=== PATIENT | male | born 1960 | race Caucasian/White ===

== ENCOUNTER 2020-05-18 10:46 | Emergency (ER) | payer OTHER, SELFPAY ==
--- NOTE | ~2020-05-18 | XR_ITS ---
EXAMINATION: XR lumbar spine 2-3V EXAM DATE: 05/18/2020 12:38 INDICATION: sciatica, low back pain for 2 weeks. No known injury. TECHNIQUE: Lumber spine frontal, lateral, lateral L5-S1 projections for interpretation. Comparison is made to prior examination from 2016. FINDINGS: Mild to moderate diffuse lumbar disc disease and lower lumbar facet arthropathy, mild uppe r lumbar facet arthropathy. Small endplate osteophytes. The vertebral bodies are aligned in the AP di mension. No endplate erosive change. Sacrum, sacroiliac joints, sacral arcuate lines are intact. Para spinal soft tissue is unremarkable. There are no osteoblastic or osteolytic lesions identified. IMPRESSION: Mild to moderate lumbar spondylosis, slight progression compared to 2016 Reviewed, dictated and finalized at location A. P SEWER IMPRESSION: Mild to moderate lumbar spondylosis, slight progression compared t o 2016
[2020-05-18 10:48] VITALS: BP 191/99; PULSE 80; RESP 14; TEMP 35.8; O2SAT 99
--- NOTE | 2020-05-18 11:18 | PC.NURSE ---
patient brought back to ED room 19 with lower back pain. see triage notes. no change in condition since triage completed. patient with difficulty walking. wants to sit on stretcher due to pain. assessments documented. call light in reach. no previous hx of HTN or meds at home.
[2020-05-18 11:32] VITALS: BP 215/101
[2020-05-18 12:02] VITALS: BP 197/102
--- NOTE | 2020-05-18 12:32 | ED.BACK ---
HPI - Back Pain/Injury General Chief Complaint: Back Pain/Injury Stated Complaint: lower back pain Time Seen by Provider: 05/18/20 12:05 History of Present Illness HPI Narrative: Patient is a 59-year-old male who presents ER with low back pain. Ongoing for 2 weeks. Began in his right low back but is now more specifically located in the left low back near L5 region. No trauma or injury with heavy lifting or moving. Woke up 1 day and his back was hurting. Reports it harder to stand upright. He will occasionally have shooting pains down behind both knees. No numbness or tingling in the private parts. No functional weakness but the pain will grab him where he reports his leg will give out. Denies fevers or chills or sweats. Has had some back pain in the past similar to this. Reports he went to a chiropractor couple days ago without any relief of his discomfort. Reports he has tried heat and ice as well as some [id number] anti-inflammatories. Related Data Allergies Allergy/AdvReac Type Severity Reaction Status Date / Time No Known Allergies Allergy Unknown Verified 07/18/15 14:49 Review of Systems Review of Systems: All systems reviewed & are unremarkable except as noted in HPI and below Constitutional: Constitutional: Denies chills, Denies fever(s) and Denies weakness Cardiovascular: Cardiovascular: Denies chest pain and Denies radiating jaw, neck or arm pain Respiratory: Respiratory: Denies dyspnea Musculoskeletal: Musculoskeletal: Reports back pain, Denies arthralgias, Denies joint swelling and Reports muscle cramps Neurologic: Denies focal weakness and Denies numbness PMFSH Past Medical History Medical History (Updated 05/18/20 @ 14:02 by Eugenio Winston MD) Healthy adult male Surgical History Surgical History (Updated 05/18/20 @ 12:34 by Eugenio Winston MD) No history of previous surgery Social History Social History (Updated 05/18/20 @ 12:34 by Eugenio Winston MD) Smoking status: Former smoker Smoking end date: 02/26/20 Alcohol intake: current Exam Narrative: Exam Narrative: GENERAL: Well-appearing, well-nourished, and in no acute distress. HEAD: Normocephalic, atraumatic. CHEST: Clear to auscultation. No respiratory distress. HEART: Regular rate and rhythm. Normal peripheral pulses. EXTREMITIES: Normal range of motion. No edema. Back: No midline tenderness of thoracic or lumbar spine. No reproducible paraspinal muscular tenderness but patient reports pain on the left side near L5 when going from sitting to standing and when trying to ambulate. SKIN: Warm, dry, no rash. NEURO: Alert and oriented x3. Course Course Emergency Course: Modest improvement of pain with Toradol. Discussed patient's elevated blood pressures and recommend that he see his primary care doctor for further treatment evaluation of this. I do not want to prescribe steroid pain medication due to the fact that he has elevated blood pressure. She will be started on scheduled naproxen as well as muscle relaxers. Will give him Adel for breakthrough pain. Patient requires a work note for tomorrow. Discussed that if his symptoms are worsening he may require MRI which his primary care doctor could arrange. Vital Signs Vital signs: Vital Signs Temperature 96.5 F L 05/18/20 10:48 Pulse Rate 80 05/18/20 10:48 Respiratory Rate 14 05/18/20 10:48 Blood Pressure 191/99 H 05/18/20 10:48 Pulse Oximetry 99 05/18/20 10:48 Temperature 96.5 F L 05/18/20 10:48 Pulse Rate 80 05/18/20 10:48 Respiratory Rate 14 05/18/20 10:48 Blood Pressure 197/102 H 05/18/20 12:02 Pulse Oximetry 99 05/18/20 10:48 MDM - Back Pain/Injury Imaging Data Radiologist's impression: ITS Impressions Lumbar Spine X-Ray 05/18/20 12:40 IMPRESSION: Mild to moderate lumbar spondylosis, slight progression compared to 2016 Discharge Plan Discharge Clinical Impression: Sciatica Pat
--- NOTE | 2020-05-18 13:00 | PC.NURSE ---
patient back from xray. pain med given as ordered. sitting on stretcher. call light in reach. denies needs.
[2020-05-18] MEDS: KETOROLAC (*BKC) 60 MG/2 ML VIAL IM (13:02)
--- NOTE | 2020-05-18 13:29 | PC.NURSE ---
sitting on stretcher. feels better and more ROM after toradol. BP still elevated. will monitor. waiting for further orders from provider vs disposition.
[2020-05-18 14:27] VITALS: BP 197/106; PULSE 78; O2SAT 100
== END 2020-05-18 14:15 | disposition home or self-care (01) ==
PROVIDERS: Emergency Provider Emergency Medicine
DX: M54.42 Lumbago with sciatica, left side (principal); M47.816 Spondylosis without myelopathy or radiculopathy, lumbar region; Z87.891 Personal history of nicotine dependence
CPT/HCPCS: 72100; 96372; 99283; J1885

== ENCOUNTER 2024-04-05 16:20 | Observation (INO) | payer OTHER, SELFPAY ==
[2024-04-05] VITALS (21 sets, daily range): BP systolic 95–124; BP diastolic 63–91; PULSE 66–94; RESP 12–23; TEMP 36.6; O2SAT 95–100
--- NOTE | ~2024-04-05 | XR_ITS ---
CHEST RADIOGRAPH, PA AND LATERAL CLINICAL HISTORY: Elevated WBC . COMPARISON: None available TECHNIQUE: PA and lateral views of the chest. FINDINGS The cardiomediastinal silhouette is unremarkable. Diffuse bilateral centrilobular groundglass opacities in both poorly defined and well defined for whi ch the differential diagnosis is broad. Cross-sectional imaging (noncontrast enhanced CT examination of the chest) is recommended for further characterization. No pleural effusions. Visualized osseous structures and soft tissues are unremarkable. IMPRESSION: Diffuse bilateral centrilobular alveolar opacities, as detailed above for which the differential diag nosis is broad (idiopathic pulmonary hemosiderosis, any of the pneumoconiosis, diffuse metastatic dis ease, as well as any of the lymphoproliferative disorders). Cross-sectional imaging (noncontrast enhanced CT examination of the chest) would better characterize this diffuse abnormality. Reviewed, dictated and finalized at location A. IMPRESSION: Diffuse bilateral centrilobular alveolar opacities, as detailed above for which the differential diagnosis is broad (idiopathic pulmonary hemosiderosis, any o f the pneumoconiosis, diffuse metastatic disease, as well as any of the lymphop roliferative disorders). Cross-sectional imaging (noncontrast enhanced CT examination of the chest) woul d better characterize this diffuse abnormality.
--- NOTE | ~2024-04-05 | US_ITS ---
EXAM: RENAL ULTRASOUND HISTORY: THEODORA COMPARISON: None FINDINGS: RIGHT KIDNEY: 11.6 x 5.8 x 4.7 cm. The parenchyma of the right kidney is increased in echogenicity. No hydronephrosis or bulky renal calculi. LEFT KIDNEY: 12.2 x 6.1 x 4.9 cm No hydronephrosis or renal calculi. The parenchyma of the left kidney is increased in echogenicity. BLADDER: Decompressed, limiting its evaluation. IMPRESSION: No hydronephrosis or renal calculi. Findings suggesting medical renal disease. Reviewed, dictated and finalized at location A.
--- NOTE | 2024-04-05 16:43 | ECG_ITS ---
Test Date: 2024-04-05 16:42:26 Measurements Intervals [place] Rate: 80 P: 47 WV: 158 QRS: 37 QRSD: 100 T: 35 QT: 356 QTc: 412 Interpretive Statements SINUS RHYTHM NORMAL ELECTROCARDIOGRAM No previous ECG available for comparison Electronically Signed On 04-06-2024 12:26:28 CDT by Jared Parada M.D.
[2024-04-05] MEDS: SODIUM CHLORIDE 0.9% IV 2,000 ML 999 ML IV CONT (17:01)
[2024-04-05 17:15] LABS: Basophils Absolute Auto 0.1 K/mm3 (0.0-0.1); Basophils Percent Auto 0.9 % (0.2-1.2); Eosinophils Absolute Auto 0.2 K/mm3 (0-0.3); Hematocrit 37.7 % (42.0-52.0); Hemoglobin 12.4 g/dL (14.0-18.0); Immature Granulocyte Absolute 0.18 K/mm3 (0.00-0.031); Immature Granulocyte Percent A 1.2 % (0-0.5); Lymphocytes Absolute Auto 0.99 K/mm3 (0.9-3.2); Lymphocytes Percent Auto 6.4 % (18.3-44.2); Mean Corpuscular HGB Conc 32.9 g/dl (32-36); Mean Corpuscular Volume 94.3 fl (80-100); Mean Platelet Volume 10.3 fl (7.4-10.4); Monocytes Absolute Auto 1.6 K/mm3 (0.1-0.6); Monocytes Percent Auto 10.6 % (2.6-8.5); Neutrophils Absolute Auto 12.4 K/mm3 (1.3-6.7); Neutrophils Percent Auto 79.9 % (45.5-73.1); Platelet Count Result 578 k/mm3 (150-375); Red Cell Distribution Width 13.7 % (11.5-14.5); White Blood Count 15.5 K/mm3 (4.5-10.0)
[2024-04-05 17:28] LABS: Alanine Aminotransferase 105 U/L (6-50); Albumin Level 3.9 g/dL (3.5-5.1); Alkaline Phosphatase 747 U/L (38-126); Anion Gap 11 mmol/L (4-12); Aspartate Amino Transferase 128 U/L (17-59); Bilirubin,Total 1.3 mg/dL (0.2-1.3); Blood Urea Nitrogen 53 mg/dL (9-20); Calcium 10.7 mg/dL (8.4-10.2); Carbon Dioxide 24 mmol/L (22-30); Chloride 97 mmol/L (98-107); Estimated CRCL calculation 27 ml/min; Estimated Glomerular Filt Rate 23; Glucose 154 mg/dL (65-110); Magnesium 2.1 mg/dL (1.6-2.3); Potassium 5.5 mmol/L (3.4-5.0); Sodium 132 mmol/L (137-145)
--- NOTE | 2024-04-05 18:08 | ED.RECABL ---
HPI - Recheck/Abnormal Lab/Rx General Chief Complaint: Recheck/Abnormal Lab/Rx Stated Complaint: abnormal labs Time Seen by Provider: 04/05/24 16:37 Source: patient Mode of arrival: ambulatory Limitations: no limitations History of Present Illness HPI narrative: This is a 63-year-old male, with reported history of stage IV metastatic pancreatic cancer, including metastasis to the brain, who presents emergency department at recommendation of his oncologist for abnormal kidney function tests and elevated potassium. The patient is not sure of the numbers. He states in his conversation with the oncologist today, his cancer is not treatable aside from palliative chemotherapy. He states he was given a 90 day prognosis. He complains of fatigue, though denies chest pain, shortness of breath, lower extremity swelling, change in urination, or cough. He has no other complaints at this time. Related Data Allergies Allergy/AdvReac Type Severity Reaction Status Date / Time No Known Allergies Allergy Unknown Verified 04/05/24 16:25 Review of Systems Review of Systems: All systems reviewed & are unremarkable except as noted in HPI and below PMFSH Past Medical History Medical History Pancreatic malignant neoplasm Surgical History Surgical History No history of previous surgery Social History Social History Smoking status: Former smoker Smoking end date: 02/26/20 Alcohol intake: current Exam Narrative: GENERAL: Well-developed, well-nourished, and in no acute distress. appears pale HEAD: Normocephalic, atraumatic. EYES: PERRLA and EOMI. CHEST: Clear to auscultation. No respiratory distress. No wheezes rales or rhonchi HEART: Regular rate and rhythm. No murmur heard. Normal peripheral pulses. ABDOMEN: Soft, nontender, nondistended, normal active bowel sounds. EXTREMITIES: Normal range of motion. No edema. SKIN: Warm, dry, no rash. NEURO: Alert and oriented x3. No focal deficit. Moving all 4 limbs spontaneously PSYCH: Normal mood and affect. Course Course Emergency Course: 16:50 - The patient has not yet had a goals of care conversation with a provider. We discussed his preferences. He wishes to avoid intubation if needed but does not want to be DNR. He has not yet discussed his goals of care with his family, though has begun speaking with his twister operator. We discussed treatment options pending his lab results. He prefers to be discharged today. 20:11 - White blood cell count elevated at 15.5. Hemoglobin 12.4. Platelets 578. In the absence of other infectious symptoms, I suspect these abnormalities are related to his metastatic pancreatic cancer. Initial potassium elevated at 5.5 with creatinine of 2.8. EKG not concerning for peaked t-waves or arrhythmia. Repeat potassium increased to 5.8 and creatinine decreased to 2.5 despite 2 L IV fluids. AST/ALT 128/105 respectively. BUN BUN elevated at 51 with a normal anion gap of 7. UA demonstrates 35 RBCs, trace ketones and bilirubin with no other changes concerning for urinary tract infection. I discussed these findings with the patient who agrees to IV glucose and insulin, though does not want to be admitted. He understands the possibility that his potassium will continue to rise and could become deadly. Will recheck potassium after medications. 20:13 - Nursing staff talked with the patient further, the patient changed his mind and agrees with admission. 20:31 - I discussed the patient with hospitalist, Dr. Good who accepts admission. Vital Signs Vital signs: Vital Signs Temperature 97.8 F 04/05/24 16:22 Pulse Rate 94 04/05/24 16:22 Respiratory Rate 16 04/05/24 16:22 Blood Pressure 95/63 L 04/05/24 16:22 Pulse Oximetry 100 04/05/24 16:22 Temperature 97.8 F 04/05/24 16:22 Pulse Rate 85
[2024-04-05 19:04] LABS: Add Urine Microscopic? YES; Appearance Urine Cloudy (Clear); Bacteria Urine None Seen /hpf; Bilirubin Urine 1+ (Negative); Blood Urine Negative (Negative); Color Urine Dark Yellow (Yellow); Glucose Urine UA Negative (Negative); Ketones Urine Trace mg/dL (Negative); Leukocyte Esterase Ur Negative LEU/UL (Negative); Nitrate Urine Negative (Negative); Non Pathogenic Casts >20; Protein Urine 1+ mg/dL (Negative); Specific Grav Ur 1.017 (1.001-1.035); Squamous Epithelial Cell Urine None Seen /hpf (Few); WBC Urine 0-5 /hpf (0-3); pH Urine 5.5 (5.0-9.0)
[2024-04-05 19:09] LABS: Granular Casts Urine Present /lpf; Hyaline Casts Urine Present /lpf; Need Manual Microscopic Reviewed
[2024-04-05 19:44] LABS: Anion Gap 7 mmol/L (4-12); Blood Urea Nitrogen 51 mg/dL (9-20); Calcium 9.9 mg/dL (8.4-10.2); Carbon Dioxide 23 mmol/L (22-30); Chloride 103 mmol/L (98-107); Estimated CRCL calculation 30 ml/min; Estimated Glomerular Filt Rate 26; Glucose 151 mg/dL (65-110); Potassium 5.8 mmol/L (3.4-5.0); Sodium 133 mmol/L (137-145)
[2024-04-05] MEDS: INSULIN HUMAN REGULAR (*BKC) 100 UNITS/ML 10 UNITS IV PUSH ×2 (20:02→21:35)
[2024-04-05] MEDS: DEXTROSE 50% 25 GM/50 ML SYRINGE IV PUSH ×2 (20:02→21:36)
[2024-04-05 20:14] LABS: Glucose Point of Care 142 mg/dl (65-105)
--- NOTE | 2024-04-05 20:51 | PM.IMHP ---
H&P: HPI History of Present Illness Date/Time: 04/05/24 20:51 Chief Complaint: Abnormal labs Narrative: 63 year old male with stage IV metastatic pancreatic cancer with metastases to brain presents the emergency room with with abnormal normal labs after seeing his oncologist. Over the last 3 months patient had a report a 30 lb weight loss and dizziness, today his eyes oncologist was diagnosed with stage IV pancreatic cancer with metastases to the brain. For today he did not know that he had cancer. Patient was also told that he had abnormal labs was recommended to come to the hospital. Patient leukocytosis of 15.5, sodium of 133, potassium 5.8, creatinine is 2.5, AST of 128, ALT of 105, alkaline phosphatase 746. Long discussion with patient about code status, what CPR means, what intubation means, and different interventions that we can offer. The patient states that he is okay with CPR, and code medications however he does not want to be intubated during the code, and does not want to go to the ICU Review of Systems Constitutional: Constitutional: Reports no additional constitutional complaints Eyes: Eyes: Reports no additional eye complaints ENT: Reports as per HPI Cardiovascular: Cardiovascular: Reports no additional cardiovascular complaints Respiratory: Respiratory: Reports no additional respiratory complaints Gastrointestinal: Gastrointestinal: Reports no additional gastrointestinal complaints Genitourinary: Comments: Dark urine Musculoskeletal: Musculoskeletal: Reports no additional musculoskeletal complaints Integumentary/Breasts: Skin/Breast: Reports as per HPI Neurologic: Reports as per HPI Psychiatric: Psychiatric: Reports no additional psychiatric complaints [facility] Past Medical History Medical History (Updated 04/05/24 @ 23:20 by Rafaela Wang APRN) Pancreatic malignant neoplasm Surgical History Surgical History (Updated 04/05/24 @ 23:18 by Rafaela Wang APRN) H/O Spinal surgery Social History Social History Smoking packs per day: 1 Smoking cigarettes per day: 20.0 Years smoked: 40 Smoking pack-years: 40.00 Smoking status: Former smoker Smoking end date: 02/26/20 Alcohol intake: former Substance use: never Do You Feel Safe in your Home?: Yes Lack of Transportation: No Lack of Food: Never True Current Housing: Decline to Answer Concerned About Future Housing: No Difficulty Paying Gas/Electric Bills: No Difficulty Paying for Meds: No Currently Unemployed: No Education: High School Diploma/GED Difficulty w/ Childcare or Family Care: No Spiritual care concerns: No Meds Home Medications and Allergies Home Medications Medication Instructions Recorded Confirmed Type cyclobenzaprine 10 mg tablet 10 mg PO TID PRN muscle spasm #20 05/18/20 04/05/24 Rx tabs allopurinol 300 mg tablet 300 mg PO DAILY 04/05/24 04/05/24 History amlodipine 10 mg tablet 10 mg PO DAILY 04/05/24 04/05/24 History atorvastatin 40 mg tablet 40 mg PO DAILY 04/05/24 04/05/24 History celecoxib 100 mg capsule 100 mg PO Q12H PRN Pain 04/05/24 04/05/24 History dexamethasone 2 mg tablet 2 mg PO DAILY 04/05/24 04/05/24 History hydrocodone 10 mg-acetaminophen 1 tablet PO Q6H PRN Pain (Scale 04/05/24 04/05/24 History 325 mg tablet Score 4-6) lisinopril 40 mg tablet 40 mg PO DAILY 04/05/24 04/05/24 History trazodone 50 mg tablet 50 mg PO HS PRN Insomnia 04/05/24 04/05/24 History Allergies Allergy/AdvReac Type Severity Reaction Status Date / Time No Known Allergies Allergy Unknown Verified 04/05/24 16:25 Vital Signs Vital Signs - 24 hr 04/05/24 16:22 04/05/24 17:47 04/05/24 18:00 Temperature 97.8 F Pulse Rate 94 70 67 Respiratory Rate 16 18 13 Blood Pressure 95/63 L 107/75 Pulse Oximetry 100 98 99 04/05/24 18:02 04/05/24 18:15 04/05/24 18:17 Temperature Pulse Rate 66 67 68 Resp
[2024-04-05] MEDS: SODIUM ZIRCONIUM CYCLOSILICATE 10 GM POWD.PACK PO (20:56)
[2024-04-05 21:06] LABS: Glucose Point of Care 192 mg/dl (65-105)
[2024-04-05 21:17] LABS: Potassium 5.7 mmol/L (3.4-5.0)
[2024-04-05] MEDS: HYDROcodone/acetaminophen (*CRX) 5-325 MG TABLET 1 TAB PO (22:37)
[2024-04-05] MEDS: SODIUM CHLORIDE 0.9% IV 1,000 ML 100 ML IV CONT (22:40)
[2024-04-05] MEDS: CALCIUM GLUC 1,000 MG/NS 50 ML 1,000 MG/50 ML BAG 100 MG IVPB (22:47)
[2024-04-06] VITALS (11 sets, daily range): BP systolic 91–113; BP diastolic 57–69; PULSE 66–88; RESP 15–20; TEMP 36.5–36.9; O2SAT 93–96; BMI 24.7
[2024-04-06 00:24] LABS: Potassium 5.1 mmol/L (3.4-5.0)
[2024-04-06 05:19] LABS: Basophils Absolute Auto 0.1 K/mm3 (0.0-0.1); Basophils Percent Auto 0.5 % (0.2-1.2); Eosinophils Percent Auto 0.1 % (0-4.4); Hematocrit 35.6 % (42.0-52.0); Hemoglobin 11.3 g/dL (14.0-18.0); Immature Granulocyte Absolute 0.13 K/mm3 (0.00-0.031); Immature Granulocyte Percent A 0.8 % (0-0.5); Lymphocytes Percent Auto 5.8 % (18.3-44.2); Mean Corpuscular HGB Conc 31.7 g/dl (32-36); Mean Corpuscular Hemoglobin 30.1 pg (26-34); Mean Corpuscular Volume 94.9 fl (80-100); Mean Platelet Volume 10.1 fl (7.4-10.4); Monocytes Absolute Auto 1.5 K/mm3 (0.1-0.6); Monocytes Percent Auto 9.7 % (2.6-8.5); Neutrophils Absolute Auto 12.9 K/mm3 (1.3-6.7); Neutrophils Percent Auto 83.1 % (45.5-73.1); Platelet Count Result 500 k/mm3 (150-375); Red Blood Count 3.75 M/mm3 (4.6-6.20); Red Cell Distribution Width 13.6 % (11.5-14.5); White Blood Count 15.5 K/mm3 (4.5-10.0)
[2024-04-06 05:33] LABS: Magnesium 1.8 mg/dL (1.6-2.3); Phosphorus 4.1 mg/dL (2.5-4.5)
[2024-04-06 05:37] LABS: Anion Gap 8 mmol/L (4-12); Blood Urea Nitrogen 43 mg/dL (9-20); Calcium 9.9 mg/dL (8.4-10.2); Carbon Dioxide 22 mmol/L (22-30); Chloride 105 mmol/L (98-107); Estimated CRCL calculation 40 ml/min; Estimated Glomerular Filt Rate 36; Glucose 126 mg/dL (65-110); Potassium 5.3 mmol/L (3.4-5.0); Sodium 135 mmol/L (137-145)
[2024-04-06] MEDS: ATORVASTATIN 40 MG TABLET PO (08:27)
[2024-04-06] MEDS: ENOXAPARIN 40 MG/0.4 ML SYRINGE SUB-Q (08:27)
[2024-04-06] MEDS: HYDROcodone/acetaminophen (*CRX) 10-325 MG TABLET 1 TAB PO ×2 (08:32→15:34)
--- NOTE | 2024-04-06 08:45 | PC.NURSE ---
Lying in bed, alert and oriented at this time. States Do I get to eat anything, I am hungry . Discussed that an order for a low potassium diet has been put in, reviewed the menu and explained how to call for food. Verbalizes understanding at this time. Also discussed plan of care, including current lab results, and medications. Patient verbalizes understanding and states that he is familiar with medications ordered to be given this morning. Denies shortness of breath, complains of generalized pain (has been ongoing), and denies chest pain at this time. Vital signs are stable this morning. No acute distress noted at this time.
--- NOTE | 2024-04-06 17:01 | PM.IMPN ---
Progress Note: A&P Assessment and Plan (1) Metastatic adenocarcinoma to pancreas: Code(s): C78.89 - Secondary malignant neoplasm of other digestive organs Status: Acute Assessment and Plan: Hx from patient and family. Patient was hospitalized about 2-3 weeks ago at [facility] and found to have metastatic pancreatic cancer determined by liver biopsy. He has metastasis to his lung and brain. He is not sure if he has had a PET scan. Patient could not follow up with the oncologist at [facility] because he is [id number] so he made an appointment with Dr Echevarria which was scheduled for today. He has already been told that his life expectancy is about 3 months. He states the Dr Echevarria has all the records so will hold on repeating imaging here until patient is seen by Dr Echevarria and plan can be worked out. key account coordinator spoke with patient about informational meeting with Hospice and patient agreed to that. (2) Acute hyperkalemia: Code(s): E87.5 - Hyperkalemia Status: Acute Assessment and Plan: Patient was sent to the ED due to abnormal labs. Here, he had a potassium of 5.5 with THEODORA. Patient given dextrose, insulin, Lokelma and 2 L bolus an emergency room. Repeat potassium was 5.8 and he had repeat treatment. Started on IV fluids. Repeat potassium today was 5.3. On a low potassium diet. Follow. (3) THEODORA (acute kidney injury): Code(s): N17.9 - Acute kidney failure, unspecified Status: Acute Assessment and Plan: Cr 2.8 on admission. Baseline unknown and patient denies underlying renal dysfunction. Patient given 2 L emergency room and started on IV fluids. Cr trending down. Suspect related to dehydration from poor oral intake, medications (ROLF, NSAIDS) and pancreatic CA Holding allopurinol, celecoxib and lisinopril Check Renal US. Check urine studies. Continue IV fluids for hydration (4) Leukocytosis: Code(s): D72.829 - Elevated white blood cell count, unspecified Status: Acute Assessment and Plan: WBC elevated on admission at 15K. UA not consistent with UTI. CXR showing diffuse bilateral centrilobular alveolar opacities. Differential is broad but suspect this is from diffuse metastatic disease Will hold off on CT chest at this time. See below (5) Hypertension: Code(s): I10 - Essential (primary) hypertension Status: Acute Assessment and Plan: Patient's blood pressure was reviewed on 04/06 Blood pressure soft at times but mostly stable Will continue to monitor. Continue to hold lisinopril (6) Gout: Code(s): M10.9 - Gout, unspecified Status: Acute Assessment and Plan: Monitor for gouty flare. Holding allopurinol Plan DVT prophylaxis - Lovenox Code status - modified. Subjective Date/time seen: 04/06/24 17:01 Interval history: 63yo male with metastatic pancreatic cancer here for abnormal labs. No CP or SOB. Weight loss of 28# past 6 weeks. Slept poorly last night. Lightheadedness better and he is eating better. He was taken off his BP meds recently. Exam Narrative: AF 97.9 91/57 77 16 93% ra Gen - NARD Chest - CTA bilaterally, nml RR CV - RRR S1/S2. Tele showing no significant dysrhythmias Abd - Soft, NT/ND, Positive BS, hepatomegaly Ext - No pedal edema Neuro - Alert and oriented but forgetful at times Psych - Nml mood and affect Skin - Warm and dry Objective Data Vital Signs Vital Signs: Vital Signs - 24 hr 04/05/24 17:47 04/05/24 18:00 04/05/24 18:02 Temperature Pulse Rate 70 67 66 Respiratory Rate 18 13 18 Blood Pressure 107/75 107/76 Pulse Oximetry 98 99 100 Oxygen Delivery 04/05/24 18:15 04/05/24 18:17 04/05/24 18:30 Temperature Pulse Rate 67 68 78 Respiratory Rate 16 23 H 18 Blood Pressure 112/73 Pulse Oximetry 100 100 Oxygen Delivery 04/05/24 18:45 04/05/24 19:00 04/05/24 19:13 Temperature Pulse Rate 76 83 80 Respirat
[2024-04-06 18:19] LABS: Anion Gap 10 mmol/L (4-12); Blood Urea Nitrogen 37 mg/dL (9-20); Calcium 10.1 mg/dL (8.4-10.2); Carbon Dioxide 18 mmol/L (22-30); Chloride 106 mmol/L (98-107); Estimated CRCL calculation 47 ml/min; Estimated Glomerular Filt Rate 44; Glucose 134 mg/dL (65-110); Potassium 4.6 mmol/L (3.4-5.0); Sodium 134 mmol/L (137-145)
[2024-04-06] MEDS: SODIUM CHLORIDE 0.9% IV 1,000 ML 100 ML IV CONT (21:04)
[2024-04-06] MEDS: traZODone HCL 50 MG TABLET PO (21:10)
[2024-04-06 23:14] LABS: Creatinine Urine 129.8 mg/dL
[2024-04-06 23:16] LABS: Sodium Urine Random 83 meq/L
[2024-04-06 23:20] LABS: Eosinophil Urine None Seen % (None Seen); Urine Eos QC 2nd Tech Confirmed
[2024-04-07] VITALS (9 sets, daily range): BP systolic 113–123; BP diastolic 59–66; PULSE 76–99; RESP 16–20; TEMP 36.8–37.7; O2SAT 91–94
[2024-04-07 05:06] LABS: Albumin Level 3.1 g/dL (3.5-5.1); Anion Gap 7 mmol/L (4-12); Blood Urea Nitrogen 33 mg/dL (9-20); Calcium 9.5 mg/dL (8.4-10.2); Carbon Dioxide 22 mmol/L (22-30); Chloride 105 mmol/L (98-107); Creatine Kinase 32 U/L (55-170); Estimated CRCL calculation 53 ml/min; Estimated Glomerular Filt Rate 51; Glucose 87 mg/dL (65-110); Phosphorus 2.9 mg/dL (2.5-4.5); Potassium 4.8 mmol/L (3.4-5.0); Sodium 134 mmol/L (137-145)
[2024-04-07] MEDS: SODIUM CHLORIDE 0.9% IV 1,000 ML 100 ML IV CONT (06:34)
[2024-04-07] MEDS: HYDROcodone/acetaminophen (*CRX) 10-325 MG TABLET 1 TAB PO (08:44)
[2024-04-07] MEDS: ENOXAPARIN 40 MG/0.4 ML SYRINGE SUB-Q (08:44)
[2024-04-07] MEDS: CYCLOBENZAPRINE HCL 10 MG TABLET PO (09:37)
--- NOTE | 2024-04-07 13:24 | PM.DS ---
DS: Admitting Diagnosis Discharge Date 04/07/24 Admitting Diagnosis Abnormal lab DS: Discharge Diagnosis Discharge Diagnosis (1) Acute hyperkalemia: Code(s): E87.5 - Hyperkalemia Status: Acute (2) THEODORA (acute kidney injury): Code(s): N17.9 - Acute kidney failure, unspecified Status: Acute (3) Leukocytosis: Code(s): D72.829 - Elevated white blood cell count, unspecified Status: Acute (4) Hypertension: Code(s): I10 - Essential (primary) hypertension Status: Acute DS: Summary Hospital Course Hospital Course: 63 year old male with stage IV metastatic pancreatic cancer with metastases to brain presents the emergency room with with abnormal normal labs after seeing his oncologist. Over the last 3 months patient had a report a 30 lb weight loss and dizziness, today his eyes oncologist was diagnosed with stage IV pancreatic cancer with metastases to the brain. For today he did not know that he had cancer. Patient was also told that he had abnormal labs was recommended to come to the hospital. patient is clinically stable, his pain has improved and hyperkalemia has resolved, patient stats he feels fine and watch his diet, patient stats he will follow up his oncologist as outpatient. will discharge patient today. Time Spent with Patient Time attestation: Total time spent providing and/or coordinating discharge services: Exam Narrative: Patient is comfortable, NAD HEENT: eyes are clear and none icteric LUNGS:CTA HEART: RR S1S2 ABD: BS+, Soft and nontender Lower extremities: no edema SKIN: nonjaundiced Neuro: grossly intact. DS: Data Data Completed and Pending Labs on day of discharge: Labs from last 24 hours 04/07/24 04/06/24 04/06/24 04:35 22:29 17:55 Sodium 134 L 134 L Potassium 4.8 4.6 Chloride 105 106 Carbon Dioxide 22 18 L Anion Gap 7 10 BUN 33 H 37 H Creatinine 1.40 H 1.60 H Estim Creat Clear Calc 53 47 Estimated GFR 51 L 44 L Glucose 87 134 H Calcium 9.5 10.1 Phosphorus 2.9 Total Creatine Kinase 32 L Albumin 3.1 L Urine Eosinophils None seen Ur Random Sodium 83 Urine Creatinine 129.8 Discharge Plan Discharge Attending physician on discharge: Linette Hartman Consulting providers: Azar Echevarria Discharging Clinician: Gloria Fernández Patient Disposition: Home, Self-Care Activity: as tolerated Diet: as tolerated and low fat Discharge Instructions: Patient is instructed to eat low fat and low potassium diet, patient to follow up with Dr. Echevarria oncologist as soon as possible, patient to follow up with his primary care provider as soon as possible, patient is instructed if any symptoms worsen to go to nearest ER. Patient Instructions: Antibiotic Form, Low Fat Diet (DC), Potassium Content of Foods List (DC), Hyperkalemia (DC) Stand Alone Forms: General Discharge Information Follow-up/Referrals: Azar Echevarria MD [Physician] - UNKNOWN,DOCTOR [Primary Care Provider] - Discharge Medications: Continued cyclobenzaprine 10 mg tablet 10 mg PO TID PRN (Reason: muscle spasm) Qty: 20 0RF trazodone 50 mg tablet 50 mg PO HS PRN (Reason: Insomnia) hydrocodone-acetaminophen 10-325 mg tablet 1 tablet PO Q6H PRN (Reason: Pain (Scale Score 4-6)) amlodipine 10 mg tablet 10 mg PO DAILY dexamethasone 2 mg tablet 2 mg PO DAILY allopurinol 300 mg tablet 300 mg PO DAILY lisinopril 40 mg tablet 40 mg PO DAILY Held atorvastatin 40 mg tablet 40 mg PO DAILY Hold Instructions: until seen by his priamry care provider celecoxib 100 mg capsule 100 mg PO Q12H PRN (Reason: Pain) Hold Instructions: until seen by his priamry care provider Date of admission: 04/05/24 20:33 Primary Care Provider: UNKNOWN,DOCTOR Admitting Provider: So Good Attending physician on admission: So Good
== END 2024-04-07 15:54 | disposition home or self-care (01) ==
LOC: ANHED 20:42 → ANHIMU 04-06 10:33
PROVIDERS: Internal Medicine; Nurse Practitioner Gerontology; Admitting Provider General Practice; Emergency Provider Preventive Medicine Aerospace Medicine; Visit Provider Family Medicine
DX: E87.5 Hyperkalemia (principal); N17.9 Acute kidney failure, unspecified; D72.829 Elevated white blood cell count, unspecified; C25.9 Malignant neoplasm of pancreas, unspecified; C78.7 Secondary malignant neoplasm of liver and intrahepatic bile duct; C78.00 Secondary malignant neoplasm of unspecified lung; C79.31 Secondary malignant neoplasm of brain; M10.9 Gout, unspecified; I10 Essential (primary) hypertension; Z79.899 Other long term (current) drug therapy; Z87.891 Personal history of nicotine dependence
CPT/HCPCS: 36415; 71046; 76775; 80048; 80053; 80069; 81001; 82550; 82570; 82948; 83735; 84100; 84132; 84300; 85025; 85999; 93005; 96360; 96361; 96372; 96374; 96375; 96376; 99285; A9270; G0378; J0612; J1650; J1815; J7030

== ENCOUNTER 2024-04-12 14:42 | Observation (INO) | payer OTHER, SELFPAY ==
[2024-04-12] VITALS (18 sets, daily range): BP systolic 103–138; BP diastolic 63–126; PULSE 61–100; RESP 11–97; TEMP 36.4–36.6; O2SAT 92–100; BMI 23.6
--- NOTE | ~2024-04-12 | US_ITS ---
EXAMINATION: US venous doppler [facility] DATE: 04/13/2024 13:26 INDICATION: Shortness of breath with pulmonary emboli. TECHNIQUE: Grayscale ultrasound images without and with compression and Doppler ultrasound images of the bilateral lower extremity veins were obtained. COMPARISON: None. FINDINGS: Noncompressible deep venous thrombosis in right posterior tibial vein. The visualized portions of rig ht common femoral vein, profunda (deep) femoral vein, femoral vein, popliteal vein, peroneal veins, g astrocnemius vein and greater saphenous vein outflow are patent. The visualized portions of left common femoral vein, profunda femoral vein, femoral vein, popliteal v ein, posterior tibial veins, peroneal veins, gastrocnemius vein and greater saphenous vein outflow ar e patent. IMPRESSION: 1. [id number] deep venous thrombosis in the left posterior tibial vein. 2. No deep venous anastomosis in the right lower limb. Reviewed, dictated and finalized at location A. IMPRESSION: 1. [id number] deep venous thrombosis in the left posterior tibial vein. 2. No deep venous anastomosis in the right lower limb.
--- NOTE | ~2024-04-12 | CT_ITS ---
EXAMINATION: CTA chest PE abdomen pel DATE: 04/12/2024 18:09 INDICATION: Shortness of breath. Abdominal pain. TECHNIQUE: Computed tomography angiography (CTA) of the chest was performed with 100 mL Omnipaque-350 intravenous contrast timed to evaluate the pulmonary arteries. Coronal maximum intensity projection 3D-reconstructions were created by the technologist. Computed tomography (CT) of the abdomen and pelv is was performed with intravenous contrast. Automated exposure control and iterative reconstruction t echnique were employed. The dose-length product was 953.43 mGy-cm. COMPARISON: Chest 2 views 04/05/2024 FINDINGS: CTA chest: There are greater than 100 nodules in the lungs measuring up to approximately 11 mm. There is mild atelectasis bilaterally. The heart size is normal. There are coronary artery calcifications. No pericardial effusion. There are acute pulmonary emboli in the lower lobes and right middle lobe. There is mild thoracic spondylosis. CT abdomen and pelvis: There are greater than 20 masses in the liver measuring up to 6.3 cm. The gall bladder is normal. There is a 7.6 x 7.1 cm mass involving the tail of pancreas with involvement of th e left adrenal gland, left kidney, and splenic flexure of the colon. There is total occlusion of sple bryon artery and vein. There is low-attenuation infarct in the spleen. Right adrenal gland is normal. T here are cysts in the kidneys measuring up to 12 mm on the right. The pancreas is mildly enlarged. Th ere are bilateral inguinal hernias containing fat. The proximal colon is mildly dilated. There is gas tric chronic, periportal, peripancreatic, and left perinephric lymphadenopathy. There are multiple ma sses in the peritoneum measuring up to 1.5 x 1.2 cm. There is no ascites. There is severe lumbar spon dylosis. IMPRESSION: 1. Acute pulmonary emboli in the lower lobes and right middle lobe. I called this result to Dr. Kira gilbert. 2. Pancreatic mass, consistent with primary malignancy, with invasion of the left adrenal gland, left kidney, and splenic flexure of the colon with partial colonic obstruction. 3. Pulmonary nodules, liver masses, abdominal lymphadenopathy, and peritoneal masses, consistent with metastatic disease. 4. Splenic infarct. Reviewed, dictated and finalized at location A. IMPRESSION: 1. Acute pulmonary emboli in the lower lobes and right middle lobe. I called th is result to Dr. Kevin. 2. Pancreatic mass, consistent with primary malignancy, with invasion of the le ft adrenal gland, left kidney, and splenic flexure of the colon with partial co lonic obstruction. 3. Pulmonary nodules, liver masses, abdominal lymphadenopathy, and peritoneal m asses, consistent with metastatic disease. 4. Splenic infarct.
--- NOTE | 2024-04-12 15:38 | PC.NURSE ---
Patient is in pain and getting onto the ground and in and out of bed. explained to the patient that he needs to stay in the bed, and keep the side rails up and stay in the bed so that he doesn't get tangled up in the cords for the monitor, or fall and get injured. patient isn't staying in the bed with the side rails up and keeps kneeling on the floor next to the bed.
--- NOTE | 2024-04-12 17:00 | ECG_ITS ---
Test Date: 2024-04-12 17:40:49 Measurements Intervals [place] Rate: 57 P: 22 FL: 152 QRS: 38 QRSD: 114 T: 23 QT: 421 QTc: 413 Interpretive Statements SINUS BRADYCARDIA Compared to ECG 04/05/2024 16:42:26 NO SIGNIFICANT CHANGES Electronically Signed On 04-13-2024 13:33:50 CDT by Tee Armas M.D.
[2024-04-12] MEDS: HYDROmorphone HCL INJ (*CRX) 1 MG/ML SYR IV PUSH ×2 (17:19→21:26)
[2024-04-12] MEDS: ONDANSETRON INJ 4 MG/2 ML VIAL IV PUSH (17:19)
[2024-04-12] MEDS: SODIUM CHLORIDE 0.9% IV 1,000 ML 999 ML IV CONT ×2 (17:20→21:26)
[2024-04-12 17:38] LABS: Basophils Percent Auto 0.1 % (0.2-1.2); Hematocrit 38.3 % (42.0-52.0); Hemoglobin 12.7 g/dL (14.0-18.0); Immature Granulocyte Absolute 0.25 K/mm3 (0.00-0.031); Immature Granulocyte Percent A 1.1 % (0-0.5); Lymphocytes Absolute Auto 1.07 K/mm3 (0.9-3.2); Lymphocytes Percent Auto 4.6 % (18.3-44.2); Mean Corpuscular HGB Conc 33.2 g/dl (32-36); Mean Corpuscular Hemoglobin 30.5 pg (26-34); Mean Corpuscular Volume 92.1 fl (80-100); Mean Platelet Volume 10.7 fl (7.4-10.4); Monocytes Absolute Auto 2.9 K/mm3 (0.1-0.6); Monocytes Percent Auto 12.6 % (2.6-8.5); Neutrophils Percent Auto 81.6 % (45.5-73.1); Platelet Count Result 337 k/mm3 (150-375); Red Blood Count 4.16 M/mm3 (4.6-6.20); Red Cell Distribution Width 13.8 % (11.5-14.5); White Blood Count 23.2 K/mm3 (4.5-10.0)
[2024-04-12 17:47] LABS: Lactic Acid Reflex 2.8 mmol/L (0.7-2.0)
[2024-04-12 17:48] LABS: Alanine Aminotransferase 162 U/L (6-50); Albumin Level 3.7 g/dL (3.5-5.1); Alkaline Phosphatase 1002 U/L (38-126); Anion Gap 14 mmol/L (4-12); Aspartate Amino Transferase 122 U/L (17-59); Bilirubin,Total 1.1 mg/dL (0.2-1.3); Blood Urea Nitrogen 51 mg/dL (9-20); Calcium 9.9 mg/dL (8.4-10.2); Carbon Dioxide 17 mmol/L (22-30); Chloride 102 mmol/L (98-107); Estimated Glomerular Filt Rate > 60; Glucose 186 mg/dL (65-110); Lipase 157 U/L (23-300); Potassium 4.7 mmol/L (3.4-5.0); Sodium 133 mmol/L (137-145)
[2024-04-12 17:50] LABS: INR 1.2; Partial Thromboplastin Time 24.7 Seconds (22.3-36.8)
[2024-04-12 18:09] LABS: Troponin I < 0.012 ng/mL (0.000-0.034)
--- NOTE | 2024-04-12 18:54 | ED.GENADULT ---
HPI - General Adult General Chief complaint: Unspecified Stated complaint: all over pain Time Seen by Provider: 04/12/24 16:44 History of Present Illness HPI narrative: 63-year-old male with a history of pancreatic adenocarcinoma presenting with abdominal pain. States that he has been very constipated due to his narcotic pain medications. He took some laxatives and he then developed severe diffuse abdominal cramping. He was able to have a bowel movement which seemed to help. States that this pain is different from his prior pain related to his pancreatic cancer. Also complains of an episode of severe shortness of breath several days ago. No chest pain. No further complaints currently. Related Data Home Medications Medication Instructions Recorded Confirmed allopurinol 300 mg tablet 300 mg PO DAILY 04/05/24 04/12/24 atorvastatin 40 mg tablet 40 mg PO DAILY 04/05/24 04/12/24 dexamethasone 2 mg tablet 2 mg PO DAILY 04/05/24 04/12/24 hydrocodone 10 mg-acetaminophen 1 tablet PO Q6H PRN Pain (Scale 04/05/24 04/12/24 325 mg tablet Score 4-6) trazodone 50 mg tablet 50 mg PO HS PRN Insomnia 04/05/24 04/12/24 Allergies Allergy/AdvReac Type Severity Reaction Status Date / Time No Known Allergies Allergy Unknown Verified 04/05/24 16:25 Review of Systems Review of Systems: All systems reviewed & are unremarkable except as noted in HPI and below PMFSH Past Medical History Medical History Pancreatic malignant neoplasm Surgical History Surgical History H/O Spinal surgery Family History Family History Father Cancer Breast cancer Mother Cancer Sibling Cancer Breast cancer Social History Social History Smoking packs per day: 1 Smoking cigarettes per day: 20.0 Years smoked: 20 Smoking pack-years: 20.00 Smoking status: Former smoker Tobacco type: cigarettes Smoking end date: 02/26/20 Alcohol intake: current Drinks per week: 1 Substance use: never Substance use type: does not use Do You Feel Safe in your Home?: Yes Lack of Transportation: No Lack of Food: Never True Current Housing: I Have Housing Concerned About Future Housing: No Difficulty Paying Gas/Electric Bills: No Difficulty Paying for Meds: No Currently Unemployed: No Education: Bachelor's Degree Difficulty w/ Childcare or Family Care: No Spiritual care concerns: No Exam Narrative: GENERAL: Ill-appearing but nontoxic, no acute distress HEAD: Normocephalic, atraumatic. EYES: PERRLA and EOMI. ENT: Mucous membranes dry NECK: Supple. CHEST: Clear to auscultation. No respiratory distress. HEART: Regular rate and rhythm ABDOMEN: Soft, mildly diffusely tender EXTREMITIES: Normal range of motion. No edema. SKIN: Warm, dry, no rash. NEURO: Alert and oriented x3. PSYCH: Normal mood and affect. Course Vital Signs Vital signs: Vital Signs Temperature 97.7 F 04/12/24 14:45 Pulse Rate 100 04/12/24 14:45 Respiratory Rate 19 04/12/24 14:45 Blood Pressure 124/81 04/12/24 14:45 Pulse Oximetry 98 04/12/24 14:45 Temperature 97.8 F 04/13/24 16:00 Pulse Rate 69 04/13/24 16:00 Respiratory Rate 20 04/13/24 16:00 Blood Pressure 100/66 04/13/24 16:00 Pulse Oximetry 95 04/13/24 16:00 Oxygen Delivery Room Air 04/13/24 16:00 Medical Decision Making MDM Narrative Medical decision making narrative: 63-year-old male presenting with abdominal pain and shortness of breath. Vitals are within normal limits. Exam remarkable for the above. EKG per my interpretation shows sinus bradycardia, no ST elevations or depressions. Blood work with white count 23.2. CTA chest is concerning for bilateral pulmonary emboli without right heart strain. He has diffuse metastatic disease as previously known. Heparin drip has been ordered. Fluids are ongoing, patient's pain has been improved with IV Dilaudid. Patient requires admission for further management. He is agreeable with this. He and his family are requesting hospice consultation as well which has been placed. Spoke with the hospitalist who has accepted him for admission. Differential Diagnosis Differential Diagnosis: Abdominal pain, shortness of breath, pulmonary emboli, metastatic cancer Medical Records Medical records reviewed: Yes I reviewed the external patient's medical records. Vital Signs Vital Signs: Vital Signs Temperature 97.7 F 04/12/24 14:45 Pulse Rate 100 04/12/24 14:45 Respiratory Rate 19 04/12/24 14:45 Blood Pressure 124/81 04/12/24 14:45 Pulse Oximetry 98 04/12/24 14:45 Temperature 97.8 F 04/13/24 16:00 Pulse Rate 69 04/13/24 16:00 Respiratory Rate 20 04/13/24 16:00 Blood Pressure 100/66 04/13/24 16:00 Pulse Oximetry 95 04/13/24 16:00 Oxygen Delivery Room Air 04/13/24 16:00 Lab Data Lab results reviewed: Yes I reviewed the patient's lab results. 04/13/24 04:23 04/12/24 17:26 Labs: Lab Results 04/12/24 Range/Units 17:26 WBC 23.2 H (4.5-10.0) K/mm3 RBC 4.16 L (4.6-6.20) M/mm3 Hgb 12.7 L (14.0-18.0) g/dL Hct 38.3 L (42.0-52.0) % MCV 92.1 (80-100) fl MCH 30.5 (26-34) pg MCHC 33.2 (32-36) g/dl RDW 13.8 (11.5-14.5) % Plt Count 337 (150-375) k/mm3 MPV 10.7 H (7.4-10.4) fl Immature Gran % (Auto) 1.1 H (0-0.5) % Neut % (Auto) 81.6 H (45.5-73.1) % Lymph % (Auto) 4.6 L (18.3-44.2) % [place] % (Auto) 12.6 H (2.6-8.5) % Eos % (Auto) 0.0 (0-4.4) % Baso % (Auto) 0.1 L (0.2-1.2) % Lymph # (Auto) 1.07 (0.9-3.2) K/mm3 [place] # (Auto) 2.9 H (0.1-0.6) K/mm3 Eos # (Auto) 0.0 (0-0.3) K/mm3 Baso # (Auto) 0.0 (0.0-0.1) K/mm3 Abs Immat Gran (auto) 0.25 H (0.00-0.031) K/mm3 Absolute Neuts (auto) 19.0 H (1.3-6.7) K/mm3 Absolute Nucleated RBC 0.000 (0.0-0.012) K/mm3 Nucleated RBC % 0.0 (0.0-0.2) % PT 15.0 H (11.1-14.7) Seconds INR 1.2 APTT 24.7 (22.3-36.8) Seconds Sodium 133 L (137-145) mmol/L Potassium 4.7 (3.4-5.0) mmol/L Chloride 102 (98-107) mmol/L Carbon Dioxide 17 L (22-30) mmol/L Anion Gap 14 H (4-12) mmol/L BUN 51 H D (9-20) mg/dL Creatinine 1.10 (0.7-1.3) mg/dL Estim Creat Clear Calc Not Reportable Estimated GFR > 60 (59 - ) Glucose 186 H (65-110) mg/dL Lactic Acid 2.8 H (0.7-2.0) mmol/L Calcium 9.9 (8.4-10.2) mg/dL Total Bilirubin 1.1 (0.2-1.3) mg/dL AST 122 H (17-59) U/L ALT 162 H (6-50) U/L Alkaline Phosphatase 1002 H (38-126) U/L Troponin I < 0.012 (0.000-0.034) ng/mL Total Protein 8.0 (6.3-8.2) g/dL Albumin 3.7 (3.5-5.1) g/dL Lipase 157 (23-300) U/L Imaging Data Radiologist's impression: ITS Impressions Chest/Abdomen/Pelvis CTA 04/12/24 18:11 IMPRESSION: 1. Acute pulmonary emboli in the lower lobes and right middle lobe. I called this result to Dr. Kevin. 2. Pancreatic mass, consistent with primary malignancy, with invasion of the left adrenal gland, left kidney, and splenic flexure of the colon with partial colonic obstruction. 3. Pulmonary nodules, liver masses, abdominal lymphadenopathy, and peritoneal masses, consistent with metastatic disease. 4. Splenic infarct. Critical Care Time Critical Care Time Critical Care Time: Yes Total Critical Care Time: 32 Discharge Plan Discharge Clinical Impression: Metastatic cancer, Bilateral pulmonary embolism, Abdominal pain Patient Disposition: Still a Patient Condition: Serious
--- NOTE | 2024-04-12 20:27 | P.HP_ITS ---
H&P: HPI History of Present Illness Date/Time: 04/12/24 20:27 Chief Complaint: abdominal pain Narrative: This is a 63-year-old male with past medical history significant for metastatic pancreatic CA recently diagnose, patient returns to the emergency room due to intractable abdominal pain. Preliminary workup was significant for CT angio PE protocol with multiple blood clots present. patient is agreeable to hospice. Will be admitted for further evaluation management and treatment EXAMINATION: CTA chest PE abdomen pel DATE: 04/12/2024 18:09 INDICATION: Shortness of breath. Abdominal pain. TECHNIQUE: Computed tomography angiography (CTA) of the chest was performed with 100 mL Omnipaque-350 intravenous contrast timed to evaluate the pulmonary arteries. Coronal maximum intensity projection 3D-reconstructions were created by the technologist. Computed tomography (CT) of the abdomen and pelvis was performed with intravenous contrast. Automated exposure control and iterative reconstruction technique were employed. The dose-length product was 953.43 mGy- cm. COMPARISON: Chest 2 views 04/05/2024 FINDINGS: CTA chest: There are greater than 100 nodules in the lungs measuring up to approximately 11 mm. There is mild atelectasis bilaterally. The heart size is normal. There are coronary artery calcifications. No pericardial effusion. There are acute pulmonary emboli in the lower lobes and right middle lobe. There is mild thoracic spondylosis. CT abdomen and pelvis: There are greater than 20 masses in the liver measuring up to 6.3 cm. The gallbladder is normal. There is a 7.6 x 7.1 cm mass involving the tail of pancreas with involvement of the left adrenal gland, left kidney, and splenic flexure of the colon. There is total occlusion of splenic artery and vein. There is low-attenuation infarct in the spleen. Right adrenal gland is normal. There are cysts in the kidneys measuring up to 12 mm on the right. The pancreas is mildly enlarged. There are bilateral inguinal hernias containing f at. The proximal colon is mildly dilated. There is gastric chronic, periportal, peripancreatic, and left perinephric lymphadenopathy. There are multiple masses in the peritoneum measuring up to 1.5 x 1.2 cm. There is no ascites. There is severe lumbar spondylosis. IMPRESSION: 1. Acute pulmonary emboli in the lower lobes and right middle lobe. I called this result to Dr. Kevin. 2. Pancreatic mass, consistent with primary malignancy, with invasion of the left adrenal gland, left kidney, and splenic flexure of the colon with partial colonic obstruction. 3. Pulmonary nodules, liver masses, abdominal lymphadenopathy, and peritoneal masses, consistent with metastatic disease. 4. Splenic infarct. Review of Systems Review of Systems: abdominal pain, poor per orally intake, weight loss PMFSH Past Medical History Medical History Pancreatic malignant neoplasm Surgical History Surgical History H/O Spinal surgery Family History Family History Father Cancer Breast cancer Mother Cancer Sibling Cancer Breast cancer Social History Social History Smoking packs per day: 1 Smoking cigarettes per day: 20.0 Years smoked: 20 Smoking pack-years: 20.00 Smoking status: Former smoker Tobacco type: cigarettes Smoking end date: 02/26/20 Alcohol intake: current Drinks per week: 1 Substance use: never Substance use type: does not use Do You Feel Safe in your Home?: Yes Lack of Transportation: No Lack of Food: Never True Current Housing: I Have Housing Concerned About Future Housing: No Difficulty Paying Gas/Electric Bills: No Difficulty Paying for Meds: No Currently Unemployed: No Education: Bachelor's Degree Difficulty w/ Childcare or Family Care: No Spiritual care concerns: No Meds Home Medications and Allergies Home Medications Medication Instructions Recorded Confirmed Type allopurinol 300 mg tablet 300 mg PO DAILY 04/05/24 04/12/24 History atorvastatin 40 mg tablet 40 mg PO DAILY 04/05/24 04/12/24 History dexamethasone 2 mg tablet 2 mg PO DAILY 04/05/24 04/12/24 History hydrocodone 10 mg-acetaminophen 1 tablet PO Q6H PRN Pain (Scale 04/05/24 04/12/24 History 325 mg tablet Score 4-6) trazodone 50 mg tablet 50 mg PO HS PRN Insomnia 04/05/24 04/12/24 History Allergies Allergy/AdvReac Type Severity Reaction Status Date / Time No Known Allergies Allergy Unknown Verified 04/05/24 16:25 Vital Signs Vital Signs - 24 hr 04/12/24 14:45 04/12/24 15:40 04/12/24 15:13 Temperature 97.7 F Pulse Rate 100 100 Respiratory Rate 19 18 24 H Blood Pressure 124/81 109/72 Pulse Oximetry 98 100 99 04/12/24 15:14 04/12/24 15:15 04/12/24 15:30 Temperature Pulse Rate 97 91 73 Respiratory Rate 27 H 32 H 32 H Blood Pressure Pulse Oximetry 99 99 04/12/24 15:43 04/12/24 15:45 04/12/24 15:47 Temperature Pulse Rate 82 74 80 Respiratory Rate 18 19 20 Blood Pressure 114/87 138/126 H Pulse Oximetry 04/12/24 15:48 04/12/24 16:00 04/12/24 16:02 Temperature Pulse Rate 80 73 79 Respiratory Rate 25 H 27 H 19 Blood Pressure 103/63 Pulse Oximetry 99 04/12/24 18:27 04/12/24 16:03 04/12/24 19:34 Temperature 97.8 F Pulse Rate 79 61 Respiratory Rate 17 11 L Blood Pressure 103/63 132/91 H Pulse Oximetry 99 97 04/12/24 17:30 Temperature Pulse Rate 79 Respiratory Rate 97 H Blood Pressure 108/71 Pulse Oximetry Exam Narrative: lying in stretcher Const: General: comfortable, no acute distress, well developed, alert, awake, ill appearing chronically and average body habitus Nutritional Appearance: average body habitus Orientation/consciousness: patient oriented x3 HENMT: Head: normal to inspection, normocephalic and atraumatic Ears: hearing grossly normal bilaterally Face/Nose/Sinus: normal facial exam Fa ce and sinus: normal facial exam Eyes: General: appearance normal, both eyes and all related structures Pupils: Equal, round and reactive pupils present EOM: EOMs intact bilaterally Neck: Neck: full ROM, no lymphadenopathy and no JVD Thyroid: thyroid normal Lymphatic: no lymphadenopathy noted Resp: Effort & Inspection: normal respiratory effort and able to speak in complete sentences Auscultation: clear to auscultation bilaterally Cardio: Jugular venous distension: no JVD Rate: regular rate Rhythm: regular rhythm Heart sounds: S1 normal heart sound present and S2 normal heart sound present GI: GI Palp: Yes Soft to palpation and Yes No hepatosplenomegaly present : General: Yes deferred Skin: Rashes: no rashes Wounds: no wounds Neuro: General: patient oriented x3 and CN's II-XI intact bilaterally Cranial nerves: Yes CN's II-XII intact bilaterally and Yes Equal, round and re active pupils present Cognition (Neuro): normal cognition Speech: normal speech Gait exam (Neuro): Normal gait present Motor exam (neuro): 5/5 motor strength present throughout Extrem: General: normal to inspection, full ROM, no joint enlargement and no pedal edema H&P: Results Labs Labs: Short CBC 04/12/24 Range/Units 17:26 WBC 23.2 H (4.5-10.0) K/mm3 Hgb 12.7 L (14.0-18.0) g/dL Hct 38.3 L (42.0-52.0) % Plt Count 337 (150-375) k/mm3 BMP 04/12/24 17:26 Sodium 133 L Potassium 4.7 Chloride 102 Carbon Dioxide 17 L BUN 51 H D Creatinine 1.10 Glucose 186 H Calcium 9.9 Cardiac Enzymes 04/12/24 Range/Units 17:26 Troponin I < 0.012 (0.000-0.034) ng/mL Liver Function 04/12/24 Range/Units 17:26 Total Bilirubin 1.1 (0.2-1.3) mg/dL AST 122 H (17-59) U/L ALT 162 H (6-50) U/L Alkaline Phosphatase 1002 H (38-126) U/L Albumin 3.7 (3.5-5.1) g/dL Assessment and Plan Assessment and plan (1) Bilateral pulmonary embolism: Code(s): I26.99 - Other pulmonary embolism without acute cor pulmonale Status: Acute Assessment and Plan: placed on heparin drip (2) Abdominal pain: Code(s): R10.9 - Unspecified abdominal pain Status: Acute Assessment and Plan: likely secondary to pancreatic CA (3) Metastatic adenocarcinoma to pancreas: Code(s): C78.89 - Secondary malignant neoplasm of other digestive organs Status: Acute Assessment and Plan: patient agreeable to hospice (4) Hypertension: Code(s): I10 - Essential (primary) hypertension Status: Acute Assessment and Plan: continue to monitor Hospitalist MIPS Advance Care Plan I have confirmed that the patient's Advanced Care Plan is present, code status is documented, or surrogate decision maker is listed in patient medical record.: Yes Medication Reconciliation I have utilized all available resources to obtain, update and review the patients current medications (includes all prescriptions, OTC, herbals, cannabis, and nutritional supplements).: Yes
[2024-04-12 20:31] LABS: Reflex Lactic Acid Yes or No Add Lactic
--- NOTE | 2024-04-12 21:35 | ADMGEN ---
This patient, Alan Spivey, was admitted to IMU Room 231-01. Patient/family oriented to hospital policies and general routines including ID bracelet, bed and alarms, visiting hours, pain management, procedures, bathroom and other care routines, personal items, smoking policy, room service/diet, and visiting hours. Information on how to activate the Rapid Response Team has been discussed. Patient/Family are encouraged to report perceived risks to care and to ask questions if they do not understand what they are told or what they should do.
[2024-04-12] MEDS: HEPARIN SODIUM 5,000 UNITS/ML VIAL 6500 UNITS IV PUSH (21:49)
[2024-04-12] MEDS: HEPARIN SOD/D5W 100 UNITS/ML 25,000 UNITS/250 ML BAG 14 UNITS IV CONT (21:49)
[2024-04-12 22:04] LABS: INR 1.2; Lactic Acid 1.7 mmol/L (0.7-2.0); Prothrombin Time 15.9 Seconds (11.1-14.7)
[2024-04-12 22:12] LABS: Partial Thromboplastin Time 25.1 Seconds (22.3-36.8)
[2024-04-12 22:16] LABS: Troponin I < 0.012 ng/mL (0.000-0.034)
[2024-04-12 23:33] LABS: Add Urine Microscopic? NO; Appearance Urine Clear (Clear); Bilirubin Urine Negative (Negative); Blood Urine Negative (Negative); Color Urine Yellow (Yellow); Glucose Urine UA Negative (Negative); Ketones Urine Negative (Negative); Leukocyte Esterase Ur Negative LEU/UL (Negative); Nitrate Urine Negative (Negative); Protein Urine Negative (Negative); Specific Grav Ur 1.045 (1.001-1.035); Urobilinogen Urine 0.2 mg/dL (<2.0); pH Urine 5.5 (5.0-9.0)
[2024-04-13] VITALS (16 sets, daily range): BP systolic 98–125; BP diastolic 58–77; PULSE 57–102; RESP 16–22; TEMP 36.3–36.7; O2SAT 93–97; BMI 23.6
--- NOTE | 2024-04-13 | ECHO_ITS ---
Patient Info Name: Alan Spivey Age: 63 years : 1960 Gender: Male Ht: 72 in Wt: 174 lbs BSA: 2.00 m2 HR: 81 bpm BP: 125 / 75 mmHg Heart Rhythm: Sinus Rhythm Technical Quality: Fair Exam Date: 04/13/2024 12:42 PM Exam Location: Echo Lab Patient Status: Outpatient Admit Date: 04/12/2024 Staff Ordering Physician: Adelaide Bobby MD Powerhouse Laborer: Sabrina Mcnamara RDCS Attending Provider: Lance Millard MD Exam Type: CA echo doppler color flow Study Info Indications - PE Complete two-dimensional, color flow and Doppler transthoracic echocardiogram is performed with contrast to opacify the left ventricle and to improve the deliniation of the left ventricle endocardial borders. Contrast/Agitated Saline Contrast/Ag. Saline: Definity Amount: 2.00 ml Administered By: Sabrina Mcnamara RDCS Existing IV Access: Yes IV Access Condition: patent with no signs of infiltration Summary 1. Left ventricular chamber dimension is normal. 2. Left ventricular systolic function is normal, estimated at 60-65%. 3. There is mildly increased left ventricular wall thickness. 4. The left ventricular diastolic function is grade I diastolic dysfunction. 5. The basal inferolateral wall, and mid inferolateral wall are hypokinetic. 6. Right ventricular chamber dimension is mildly enlarged. 7. Left atrial chamber dimension is mildly enlarged. 8. There is mild mitral valve regurgitation. 9. There is mild tricuspid valve regurgitation. 10. There is mild pulmonic regurgitation. Left Ventricle Left ventricular chamber dimension is normal. Left ventricular systolic function is normal, estimated at 60-65%. There is mildly increased left ventricular wall thickness. The left ventricular diastolic function is grade I diastolic dysfunction. The basal inferolateral wall, and mid inferolateral wall are hypokinetic. All other jones appear normal. Right Ventricle Right ventricular chamber dimension is mildly enlarged. Right ventricular systolic function is normal. Left Atria Left atrial chamber dimension is mildly enlarged. Right Atria Right atrial chamber dimension is normal. Atrial Septum Intact interatrial septum visualized by color flow imaging. Aortic Valve The aortic valve is trileaflet. There is mild aortic valve sclerosis. There is no aortic valve stenosis. There is trace aortic valve regurgitation. Pulmonic Valve The pulmonic valve is normal. There is no pulmonic valve stenosis. There is mild pulmonic regurgitation. Mitral Valve The mitral valve has normal leaflets. There is no mitral valve stenosis. There is mild mitral valve regurgitation. Tricuspid Valve The tricuspid valve leaflets are normal. There is no significant tricuspid valve stenosis. There is mild tricuspid valve regurgitation. Pericardium/Pleural The pericardium appears normal. There is trivial pericardial effusion. Inferior Vena Cava Normal inferior vena cava with <50% collapse upon inspiration consistent with normal right atrial pressure, 5 mmHg. Aorta The aortic root size at the sinus of Valsalva is normal. Left Ventricular Outflow Tract Name Value Normal LVOT 2D LVOT Diameter 2.0 cm LVOT Doppler LVOT Peak Gradient 5 mmHg LVOT Mean Gradient 2 mmHg LVOT VTI 17 cm LVOT VTI/AV VTI Ratio 0.9 LVOT Stroke Volume 54 ml LVOT CO 4.3 l/min LVOT CI 2.1 l/min/m2 Pulmonic Valve Name Value Normal RVOT Doppler RVOT Peak Gradient 2 mmHg PV Doppler PV Peak Gradient 4 mmHg Mitral Valve Name Value Normal MV Doppler MV Decel Placer 213 cm/s2 MV PHT 59 ms MV Area (PHT) 3.7 cm2 4.0-5.0 MV Diastolic Function MV E Peak Velocity 43 cm/s MV A Peak Velocity 73 cm/s MV E/A 0.6 MV Decel Time 204 ms MV Annular TDI MV E/e' (Septal) 6.2 <=8.0 MV E/e' (Lateral) 5.7 <=8.0 MV E/e' (Average) 5.9 Tricuspid Valve Name Value Normal Estimated PAP/RSVP RA Pressure 5 mmHg <=5 Aorta Name Value Normal Ascending Aorta Ao Root Diameter (MM) 3.3 cm Ao Root Diam Index (MM) 1.7 cm/m2 Aortic Valve Name Value Normal AV Doppler AV Peak Velocity 122 cm/s AV Peak Gradient 6 mmHg AV Mean Gradient 3 mmHg AV VTI 18 cm AV Area (Cont Eq VTI) 3.0 cm2 >=3.0 AV Area (Cont Eq Sandoval) 2.9 cm2 AV Regurgitation 2D LVOT Area 3.2 cm2 Ventricles Name Value Normal LV Dimensions 2D/MM IVS Diastolic Thickness (2D) 0.9 cm 0.6-1.0 LVID Diastole (2D) 4.7 cm 4.2-5.8 LVIW Diastolic Thickness (2D) 0.9 cm 0.6-1.0 LVID Systole (2D) 2.9 cm 2.5-4.0 LVOT Diameter 2.0 cm LV Mass (2D Cubed) 143.27 g 88.00-224.00 LV Mass Index (2D Cubed) 71 g/m2 49-115 Relative Wall Thickness (2D) 0.39 LV Fractional Shortening/Ejection Fraction 2D/MM LV Fractional Shortening (2D) 37 % 25-43 LV EF (2D Teicholz) 67 % 52-72 LV Diastolic Volume (4C MOD) 92 ml LV EF (4C MOD) 65 % LV Diastolic Volume (2C MOD) 46 ml LV EF (2C MOD) 60 % LV Diastolic Volume (BP MOD) 66 ml 62-150 LV Diastolic Volume Index (BP MOD) 33 ml/m2 34-74 LV Systolic Volume (BP MOD) 25 ml 21-61 LV Systolic Volume Index (BP MOD) 12 ml/m2 11-31 LV EF (BP MOD) 62 % 52-72 LV Diastolic Length (4C) 7.7 cm LV Systolic Length (4C) 5.9 cm LV Stroke Volume (4C MOD) 59 ml Atria Name Value Normal LA Dimensions LA Dimension (MM) 3.8 cm 3.0-4.1 LA Volume (4C A-L) 40 ml LA Volume (BP A-L) 46 ml RA Dimensions RA Area (4C) 7.1 cm2 <=18.0 Wall Motion Scoring Wall Motion Scoring Index: 1.12 Report Signatures
[2024-04-13] MEDS: fentaNYL (*CRX) 25 MCG PATCH TRANSDERM (00:02)
[2024-04-13] MEDS: DEXTROSE 5%/0.45% SOD CHL 1,000 ML 75 ML IV CONT ×2 (00:03→13:42)
[2024-04-13 00:04] LABS: Troponin I < 0.012 ng/mL (0.000-0.034)
[2024-04-13] MEDS: traZODone HCL 50 MG TABLET PO (00:24)
[2024-04-13 04:37] LABS: Basophils Percent Auto 0.2 % (0.2-1.2); Eosinophils Absolute Auto 0.1 K/mm3 (0-0.3); Eosinophils Percent Auto 0.3 % (0-4.4); Hematocrit 34.7 % (42.0-52.0); Hemoglobin 11.4 g/dL (14.0-18.0); Immature Granulocyte Absolute 0.26 K/mm3 (0.00-0.031); Immature Granulocyte Percent A 1.3 % (0-0.5); Lymphocytes Absolute Auto 1.61 K/mm3 (0.9-3.2); Mean Corpuscular HGB Conc 32.9 g/dl (32-36); Mean Corpuscular Hemoglobin 30.7 pg (26-34); Mean Corpuscular Volume 93.5 fl (80-100); Mean Platelet Volume 10.3 fl (7.4-10.4); Monocytes Absolute Auto 2.6 K/mm3 (0.1-0.6); Monocytes Percent Auto 12.7 % (2.6-8.5); Neutrophils Absolute Auto 15.7 K/mm3 (1.3-6.7); Neutrophils Percent Auto 77.5 % (45.5-73.1); Platelet Count Result 257 k/mm3 (150-375); Red Blood Count 3.71 M/mm3 (4.6-6.20); Red Cell Distribution Width 13.8 % (11.5-14.5); White Blood Count 20.2 K/mm3 (4.5-10.0)
[2024-04-13 04:51] LABS: Partial Thromboplastin Time 104.3 Seconds (22.3-36.8)
[2024-04-13] MEDS: polyethylene glycoL 3350 17 GM POWD.PACK PO (08:26)
[2024-04-13] MEDS: dexAMETHasone 2 MG TABLET PO (08:27)
[2024-04-13] MEDS: allopurinoL 300 MG TABLET PO (08:27)
[2024-04-13] MEDS: HYDROcodone/acetaminophen (*CRX) 10-325 MG TABLET 1 TAB PO (08:27)
[2024-04-13 10:45] LABS: Partial Thromboplastin Time 68.3 Seconds (22.3-36.8)
[2024-04-13] MEDS: HEPARIN SODIUM 5,000 UNITS/ML VIAL 3000 UNITS IV PUSH (10:56)
[2024-04-13] MEDS: ALPRAZolam (*CRX) 0.5 MG TABLET PO (11:32)
--- NOTE | 2024-04-13 11:45 | PC.NURSE ---
This RN called the oncologist office and left a voicemail to verify that the MD was aware of consult. This RN is waiting for a return phone call.
[2024-04-13] MEDS: PERFLUTREN LIPID MICROSPHERES 1.5 ML VIAL DILUTED TO 10 ML TOTAL VOLUME IV PUSH (13:07)
[2024-04-13] MEDS: PROCHLORPERAZINE EDISYLATE 10 MG/2 ML VIAL IV PUSH (13:39)
[2024-04-13] MEDS: HEPARIN SOD/D5W 100 UNITS/ML 25,000 UNITS/250 ML BAG 16 UNITS IV CONT (15:30)
--- NOTE | 2024-04-13 15:47 | IVDEFINITY ---
Prior to administration of IV Definity the patient was educated on the risks and benefits of the imaging enhancing agent including potential adverse side effects. The patient verbalized understanding. Allergies were verified. No exclusion criteria were identified and at least one of the following inclusion criteria were met: 1) physician request, 2) patient technically difficult to image (per the [place] [employer]chocardi[employer] guidelines of two or more segments not discernable within the apical view), or 3) questionable left ventricular function. ?
--- NOTE | 2024-04-13 16:07 | P.CONONC_ITS ---
[facility] - Date of Consult Date/Time: 04/13/24 16:07 Requesting Physician: Lance Millard MD Primary Care Provider: UNKNOWN,DOCTOR - Consult Narrative Reason for consult: Metastatic pancreatic cancer Narrative: Alan Spivey is a 63 year old male with recently diagnosed metastatic pancreatic cancer status post liver biopsy done and similarly the [facility] came into the hospital with intractable abdominal pain. He has been losing weight and has lost 20 lb in last 6 weeks duration. Denies any nausea vomiting. Denies any diarrhea and constipation. He has no previous history of clinton gnancy. CTA chest was performed that showed acute pulmonary embolism in the lower lobes of the right middle lobe as well as pulmonary nodules, liver masses and abdominal lymphadenopathy along with pancreatic mass. Doppler study showed [id number] DVT in the left posterior tibial vein. Patient was started on heparin drip. He was seen by an oncologist at [facility] but apparently patient insurance does not cover treatment with the oncologist. Review of Systems - Review of Systems All systems reviewed & are unremarkable except as noted in HPI and [facility] Medical History: Medical History (Last Reviewed 04/12/24 @ 18:55 by Claudette Hodge MD) Pancreatic malignant neoplasm Surgical History: Surgical History (Last Reviewed 04/12/24 @ 18:55 by Claudette Hodge MD) H/O Spinal surgery Family History: Family History (Last Updated 04/12/24 @ 22:09 by Soy Matamoros RN) Father Cancer Breast cancer Mother Cancer Sibling Cancer Breast cancer - Social History Social History: Social History (Last Reviewed 04/12/24 @ 18:55 by Claudette Hodge MD) Alcohol Use: Alcohol intake: current Drinks per week: 1 Substance Use: Substance use: never Substance use type: does not use Others: Spiritual care concerns: No Smoking Status: Smoking status: Former smoker Tobacco type: cigarettes Smoking end date: 02/26/20 Smoking Pack-years: Smoking packs per day: 1 Smoking cigarettes per day: 20.0 Years smoked: 20 Smoking pack-years: 20.00 Social Determinants of Health: Do You Feel Safe in your Home?: Yes Has the Lack of Transportation Kept You From Medical Appointments or From Getting Medications?: No Within the Past 12 Months, Were You Worried Whether Your Food Would Run Out Before You Got Money to Buy More?: Never True What is Your Housing Situation Today?: I Have Housing Are You Worried That in the Next 2 Months, You May Not Have Your Own Housing to Live In?: No Do You Have Trouble Paying Your Heating Or Electricity Bill?: No Do You Have Trouble Paying For Medicines?: No Are You Currently Unemployed and Looking for Work?: No Highest Level of Education Completed: Bachelor's Degree Do You Have Trouble With Childcare or the Care of a Family Member?: No Exam - Vital Signs Vital Signs - 24 hr 04/12/24 18:27 04/12/24 19:34 04/12/24 17:30 Temperature 36.6 C Pulse Rate 61 79 Respiratory Rate 11 L 97 H Blood Pressure 132/91 H 108/71 Pulse Oximetry 97 Oxygen Delivery 04/12/24 23:32 04/13/24 00:00 04/12/24 22:00 Temperature 36.4 C Pulse Rate 70 71 Respiratory Rate 17 Blood Pressure 134/76 Pulse Oximetry 92 Oxygen Delivery Room Air 04/13/24 00:00 04/13/24 04:00 04/13/24 02:00 Temperature Pulse Rate 62 60 Respiratory Rate Blood Pressure Pulse Oximetry Oxygen Delivery Room Air 04/13/24 05:34 04/13/24 04:00 04/13/24 06:00 Temperature 36.5 C Pulse Rate 61 75 57 L Respiratory Rate 17 Blood Pressure 116/70 Pulse Oximetry 93 Oxygen Delivery 04/13/24 08:00 04/13/24 08:00 04/13/24 08:00 Temperature 36.6 C Pulse Rate 71 76 Respiratory Rate 20 Blood Pressure 125/75 Pulse Oximetry 97 Oxygen Delivery Room Air 04/13/24 10:00 04/13/24 11:27 04/13/24 12:00 Temperature 36.3 C L Pulse Rate 81 100 102 H Respiratory Rate 16 Blood Pressure 110/77 Pulse Oximetry 96 Oxygen Delivery 04/13/24 12:00 04/13/24 14:00 Temperature Pulse Rate 74 Respiratory Rate Blood Pressure Pulse Oximetry Oxygen Delivery Room Air - Exam HEENT: EOMI, PERRLA, mucous membranes moist and pink Neck: supple Lungs: clear to auscultation, normal air movement Heart: no murmurs, gallops, or rubs, regular rhythm, regular rate Abdomen: abdomen soft, normal bowel sounds, tender Extremities: normal pulses Integumentary: no abnormalities Neurological: normal speech Psychological: mental status NL, mood NL - Lab Results Laboratory Last Values WBC 20.2 K/mm3 (4.5-10.0) H 04/13/24 04:23 RBC 3.71 M/mm3 (4.6-6.20) L 04/13/24 04:23 Hgb 11.4 g/dL (14.0-18.0) L 04/13/24 04:23 Hct 34.7 % (42.0-52.0) L 04/13/24 04:23 MCV 93.5 fl (80-100) 04/13/24 04:23 MCH 30.7 pg (26-34) 04/13/24 04:23 MCHC 32.9 g/dl (32-36) 04/13/24 04:23 RDW 13.8 % (11.5-14.5) 04/13/24 04:23 Plt Count 257 k/mm3 (150-375) 04/13/24 04:23 MPV 10.3 fl (7.4-10.4) 04/13/24 04:23 Immature Gran % (Auto) 1.3 % (0-0.5) H 04/13/24 04:23 Neut % (Auto) 77.5 % (45.5-73.1) H 04/13/24 04:23 Lymph % (Auto) 8.0 % (18.3-44.2) L 04/13/24 04:23 Thomas % (Auto) 12.7 % (2.6-8.5) H 04/13/24 04:23 Eos % (Auto) 0.3 % (0-4.4) 04/13/24 04:23 Baso % (Auto) 0.2 % (0.2-1.2) 04/13/24 04:23 Lymph # (Auto) 1.61 K/mm3 (0.9-3.2) 04/13/24 04:23 Thomas # (Auto) 2.6 K/mm3 (0.1-0.6) H 04/13/24 04:23 Eos # (Auto) 0.1 K/mm3 (0-0.3) 04/13/24 04:23 Baso # (Auto) 0.0 K/mm3 (0.0-0.1) 04/13/24 04:23 Abs Immat Gran (auto) 0.26 K/mm3 (0.00-0.031) H 04/13/24 04:23 Absolute Neuts (auto) 15.7 K/mm3 (1.3-6.7) H 04/13/24 04:23 Absolute Nucleated RBC 0.000 K/mm3 (0.0-0.012) 04/13/24 04:23 Nucleated RBC % 0.0 % (0.0-0.2) 04/13/24 04:23 PT 15.9 Seconds (11.1-14.7) H 04/12/24 21:48 INR 1.2 04/12/24 21:48 APTT 68.3 Seconds (22.3-36.8) H 04/13/24 10:26 Sodium 133 mmol/L (137-145) L 04/12/24 17:26 Potassium 4.7 mmol/L (3.4-5.0) 04/12/24 17:26 Chloride 102 mmol/L (98-107) 04/12/24 17:26 Carbon Dioxide 17 mmol/L (22-30) L 04/12/24 17:26 Anion Gap 14 mmol/L (4-12) H 04/12/24 17:26 BUN 51 mg/dL (9-20) H D 04/12/24 17:26 Creatinine 1.10 mg/dL (0.7-1.3) 04/12/24 17:26 Estim Creat Clear Calc Not Reportable 04/12/24 17:26 Estimated GFR > 60 (59-) 04/12/24 17:26 Glucose 186 mg/dL (65-110) H 04/12/24 17:26 Lactic Acid 1.7 mmol/L (0.7-2.0) 04/12/24 21:48 Calcium 9.9 mg/dL (8.4-10.2) 04/12/24 17:26 Total Bilirubin 1.1 mg/dL (0.2-1.3) 04/12/24 17:26 AST 122 U/L (17-59) H 04/12/24 17:26 ALT 162 U/L (6-50) H 04/12/24 17:26 Alkaline Phosphatase 1002 U/L (38-126) H 04/12/24 17: Troponin I < 0.012 ng/mL (0.000-0.034) 04/12/24 23:31 Total Protein 8.0 g/dL (6.3-8.2) 04/12/24 17: Albumin 3.7 g/dL (3.5-5.1) 04/12/24 17: Lipase 157 U/L (23-300) 04/12/24 17: Urine Color Yellow (Yellow) 04/12/24 22:00 Urine Appearance Clear (Clear) 04/12/24 22:00 Urine pH 5.5 (5.0-9.0) 04/12/24 22:00 Ur Specific [place] 1.045 (1.001-1.035) H 04/12/24 22:00 Urine Protein Negative mg/dL (Negative) 04/12/24 22:00 Urine Glucose (UA) Negative mg/dL (Negative) 04/12/24 22:00 Urine Ketones Negative mg/dL (Negative) 04/12/24 22:00 Ur Blood (Man) Negative (Negative) 04/12/24 22:00 Urine Nitrate Negative (Negative) 04/12/24 22:00 Urine Bilirubin Negative (Negative) 04/12/24 22:00 Urine Urobilinogen 0.2 mg/dL (<2.0) 04/12/24 22:00 Leukocyte Esterase Rfl Negative BESSIE/UL (Negative) 04/12/24 22:00 Meds Home Medications Medication Instructions Recorded Confirmed Type allopurinol 300 mg tablet 300 mg PO DAILY 04/05/24 04/12/24 History atorvastatin 40 mg tablet 40 mg PO DAILY 04/05/24 04/12/24 History dexamethasone 2 mg tablet 2 mg PO DAILY 04/05/24 04/12/24 History hydrocodone 10 mg-acetaminophen 1 tablet PO Q6H PRN Pain (Scale 04/05/24 04/12/24 History 325 mg tablet Score 4-6) trazodone 50 mg tablet 50 mg PO HS PRN Insomnia 04/05/24 04/12/24 History Allergies Allergy/AdvReac Type Severity Reaction Status Date / Time No Known Allergies Allergy Unknown Verified 04/05/24 16:25 Results - Labs CBC & Chem 7: 04/13/24 04:23 04/12/24 17:26 Labs: Short CBC 04/12/24 04/13/24 Range/Units 17:26 04:23 WBC 23.2 H 20.2 H (4.5-10.0) K/mm3 Hgb 12.7 L 11.4 L (14.0-18.0) g/dL Hct 38.3 L 34.7 L (42.0-52.0) % Plt Count 337 257 (150-375) k/mm3 BMP 04/12/24 17:26 Sodium 133 L Potassium 4.7 Chloride 102 Carbon Dioxide 17 L BUN 51 H D Creatinine 1.10 Glucose 186 H Calcium 9.9 Cardiac Enzymes 04/12/24 04/12/24 04/12/24 Range/Units 17:26 21:48 23:31 Troponin I < 0.012 < 0.012 < 0.012 (0.000-0.034) ng/mL Liver Function 04/12/24 Range/Units 17:26 Total Bilirubin 1.1 (0.2-1.3) mg/dL AST 122 H (17-59) U/L ALT 162 H (6-50) U/L Alkaline Phosphatase 1002 H (38-126) U/L Albumin 3.7 (3.5-5.1) g/dL Urine 04/12/24 Range/Units 22:00 Urine Color Yellow (Yellow) Urine Appearance Clear (Clear) Urine pH 5.5 (5.0-9.0) Ur Specific [place] 1.045 H (1.001-1.035) Urine Protein Negative (Negative) mg/dL Urine Glucose (UA) Negative (Negative) mg/dL Assessment and Plan - Additional Plan Metastatic pancreatic cancer. Patient is a 63-year-old male came into the hospital with intractable abdominal pain along with shortness of breath. He has been complaining of tiredness and fatigue and has lost 20 lb weight in last 6 weeks duration. Patient was recently at [facility] where liver biopsy was performed. CTA chest abdomen and pelvis done on April 12 showed acute PE in the lower lobe and right middle lobe along with pancreatic mass with greater than 20 masses in the liver and pulmonary nodules with abdominal lymphadenopathy and peritoneal masses. I have discussed imaging study finding with patient and the sister in detail. I will order CA 19-9. We discussed palliative chemotherapy as well as the prognosis. Seems like patient would like to get chemotherapy but sister is not interested due to quality of life. I have provided them information regarding chemotherapy and life expectancy. I was told by my office that we will not be able to treat him as we do not take his insurance. Have recommended him to contact his insurance company and has for Oncology practice covered under the insurance. Patient was provided with my office information for any other questions. I have answered all the questions to patient and the family satisfaction. Pulmonary embolism and DVT. Patient is on heparin. He can be switched to Eliquis on discharge.
--- NOTE | 2024-04-13 16:42 | PM.IMPN ---
Progress Note: A&P Assessment and Plan (1) Metastatic cancer: Code(s): C79.9 - Secondary malignant neoplasm of unspecified site Status: Acute (2) Bilateral pulmonary embolism: Code(s): I26.99 - Other pulmonary embolism without acute cor pulmonale Status: Acute (3) Metastatic adenocarcinoma to pancreas: Code(s): C78.89 - Secondary malignant neoplasm of other digestive organs Status: Acute (4) DVT (deep venous thrombosis): Code(s): I82.409 - Acute embolism and thrombosis of unspecified deep veins of unspecified lower extremity Status: Acute Plan 63 year old male with recently diagnosed metastatic pancreatic cancer status post liver biopsy done and similarly the with hospital came into the hospital with intractable abdominal pain, was found to have bilateral pulmonary embolism. 1. Bilateral pulmonary embolism with DVT: Currently on room air Continue with heparin drip Await echocardiogram Noted leukocytosis, will obtain blood cultures 2. Metastatic pancreatic adenocarcinoma: Await oncology consult Family is leaning towards hospice 3. Code status: DNR 4. Disposition: Pending improvement Time Spent With Patient Time with patient: 15 - 25 minutes Subjective Date/time seen: 04/13/24 16:42 Interval history: No acute events overnight Review of Systems Review of Systems: All systems reviewed & are unremarkable except as noted in HPI and below Exam Const: General: comfortable and no acute distress HENMT: Mouth: Yes moist mucous membranes Eyes: Sclera: sclerae normal Neck: Neck: supple Resp: Auscultation: clear to auscultation bilaterally Cardio: Rate: regular rate Rhythm: regular rhythm GI: GI Palp: Yes Soft to palpation Skin: General skin exam: normal color Neuro: Speech: normal speech Extrem: General: normal to inspection Psych: Mental Status: mental status grossly normal Objective Data Vital Signs Vital Signs: Vital Signs - 24 hr 04/12/24 18:27 04/12/24 19:34 04/12/24 17:30 Temperature 97.8 F Pulse Rate 61 79 Respiratory Rate 11 L 97 H Blood Pressure 132/91 H 108/71 Pulse Oximetry 97 Oxygen Delivery 04/12/24 23:32 04/13/24 00:00 04/12/24 22:00 Temperature 97.6 F Pulse Rate 70 71 Respiratory Rate 17 Blood Pressure 134/76 Pulse Oximetry 92 Oxygen Delivery Room Air 04/13/24 00:00 04/13/24 04:00 04/13/24 02:00 Temperature Pulse Rate 62 60 Respiratory Rate Blood Pressure Pulse Oximetry Oxygen Delivery Room Air 04/13/24 05:34 04/13/24 04:00 04/13/24 06:00 Temperature 97.7 F Pulse Rate 61 75 57 L Respiratory Rate 17 Blood Pressure 116/70 Pulse Oximetry 93 Oxygen Delivery 04/13/24 08:00 04/13/24 08:00 04/13/24 08:00 Temperature 97.8 F Pulse Rate 71 76 Respiratory Rate 20 Blood Pressure 125/75 Pulse Oximetry 97 Oxygen Delivery Room Air 04/13/24 10:00 04/13/24 11:27 04/13/24 12:00 Temperature 97.4 F L Pulse Rate 81 100 102 H Respiratory Rate 16 Blood Pressure 110/77 Pulse Oximetry 96 Oxygen Delivery 04/13/24 12:00 04/13/24 14:00 04/13/24 16:00 Temperature Pulse Rate 74 72 Respiratory Rate Blood Pressure Pulse Oximetry Oxygen Delivery Room Air 04/13/24 16:00 Temperature 97.8 F Pulse Rate 69 Respiratory Rate 20 Blood Pressure 100/66 Pulse Oximetry 95 Oxygen Delivery Intake/Output Intake/Output: Intake & Output 04/10/24 04/11/24 04/12/24 04/13/24 23:59 23:59 23:59 23:59 Intake Total 1000 1590.0 Output Total 1370 Balance 1000 220.0 Meds/Results Medications: Active Medications Generic Name Dose Route Start Last Admin Trade Name Freq PRN Reason Stop Dose Admin Acetaminophen 1,000 mg 04/13/24 05:39 Acetaminophen 500 Mg Tablet PO Q6H PRN Mild Pain (1-3) or Fever Hydrocodone Bitart/Acetaminophen 1 tab 04/13/24 05:40 04/13/24 08:27 Hydrocodone/Acetaminophen (*Crx) 10-325 Mg Tablet PO 1 tab Q6H PRN Administration Pain (Scale Score 4-6) Al Hydrox/Mg Hydrox/Simethicone 30 ml 04/13/24 05:39 Mag Hydrox/Al Hydrox/Simeth 30 Ml Udc PO Q6H PRN Indigestion Allopurinol 300 mg 04/13/24 08:00 04/13/24 08:27 Allopurinol 300 Mg Tablet PO 300 mg DAILY@0800 JUNG Administration Dexamethasone 2 mg 04/13/24 08:00 04/13/24 08:27 Dexamethasone 2 Mg Tablet PO 2 mg DAILY@0800 JUNG Administration Fentanyl 25 mcg 04/12/24 23:05 04/13/24 00:02 Fentanyl (*Crx) 25 Mcg Patch TRANSDERM 25 mcg Q72HR JUNG Administration Heparin Sodium (Porcine) 6,500 units 04/12/24 20:07 Heparin Sodium 5,000 Units/Ml Vial IV PUSH PRN PRN aPTT less than 55 seconds Heparin Sodium (Porcine) 3,000 units 04/12/24 20:07 04/13/24 10:56 Heparin Sodium 5,000 Units/Ml Vial IV PUSH 3,000 units PRN PRN Administration aPTT 55 - 70 seconds Hydromorphone HCl 1 mg 04/12/24 23:01 Hydromorphone Hcl Inj (*Crx) 1 Mg/Ml Syr IV PUSH Q3H PRN Pain Rated 7-10 Heparin Sodium/Dextrose 25,000 units in 250 mls @ 16 mls/hr 04/12/24 20:10 04/13/24 15:30 Heparin Sodium/D5w 100 Units/Ml IV CONT 1,600 units/hr .[id number] JUNG 16 mls/hr Administration Protocol 1,600 UNITS/HR Dextrose/Sodium Chloride 1,000 mls @ 75 mls/hr 04/12/24 23:05 04/13/24 13:42 Dextrose 5% Sodium Chloride 0.45% IV CONT 75 mls/hr .[id number] JUNG Administration Polyethylene Glycol 17 gm 04/13/24 05:39 04/13/24 08:26 Polyethylene Glycol 3350 17 Gm Powd.Pack PO 17 gm QAM PRN Administration Constipation Prochlorperazine Edisylate 10 mg 04/13/24 12:01 04/13/24 13:39 Prochlorperazine Edisylate 10 Mg/2 Ml Vial IV PUSH 10 mg Q6H PRN Administration Hiccups Trazodone HCl 50 mg 04/12/24 23:02 04/13/24 00:24 Trazodone Hcl 50 Mg Tablet PO 50 mg HS PRN Administration Insomnia Trazodone HCl 50 mg 04/13/24 05:40 Trazodone Hcl 50 Mg Tablet PO HS PRN Insomnia Radiology Results: ITS Impressions Chest/Abdomen/Pelvis CTA 04/12/24 18:11 IMPRESSION: 1. Acute pulmonary emboli in the lower lobes and right middle lobe. I called this result to Dr. Kevin. 2. Pancreatic mass, consistent with primary malignancy, with invasion of the left adrenal gland, left kidney, and splenic flexure of the colon with partial colonic obstruction. 3. Pulmonary nodules, liver masses, abdominal lymphadenopathy, and peritoneal masses, consistent with metastatic disease. 4. Splenic infarct. Venous Doppler Study 04/13/24 13:33 IMPRESSION: 1. [id number] deep venous thrombosis in the left posterior tibial vein. 2. No deep venous anastomosis in the right lower limb. Labs Labs: Laboratory Results - last 24 hr 04/12/24 04/12/24 04/12/24 17:26 21:48 22:00 WBC 23.2 H RBC 4.16 L Hgb 12.7 L Hct 38.3 L MCV 92.1 MCH 30.5 MCHC 33.2 RDW 13.8 Plt Count 337 MPV 10.7 H Immature Gran % (Auto) 1.1 H Neut % (Auto) 81.6 H Lymph % (Auto) 4.6 L [place] % (Auto) 12.6 H Eos % (Auto) 0.0 Baso % (Auto) 0.1 L Lymph # (Auto) 1.07 [place] # (Auto) 2.9 H Eos # (Auto) 0.0 Baso # (Auto) 0.0 Abs Immat Gran (auto) 0.25 H Absolute Neuts (auto) 19.0 H Absolute Nucleated RBC 0.000 Nucleated RBC % 0.0 PT 15.0 H 15.9 H INR 1.2 1.2 APTT 24.7 25.1 Sodium 133 L Potassium 4.7 Chloride 102 Carbon Dioxide 17 L Anion Gap 14 H BUN 51 H D Creatinine 1.10 Estim Creat Clear Calc Not Reportable Estimated GFR > 60 Glucose 186 H Lactic Acid 2.8 H 1.7 Calcium 9.9 Total Bilirubin 1.1 AST 122 H ALT 162 H Alkaline Phosphatase 1002 H Troponin I < 0.012 < 0.012 Total Protein 8.0 Albumin 3.7 Lipase 157 Urine Color Yellow Urine Appearance Clear Urine pH 5.5 Ur Specific [place] 1.045 H Urine Protein Negative Urine Glucose (UA) Negative Urine Ketones Negative Ur Blood (Man) Negative Urine Nitrate Negative Urine Bilirubin Negative Urine Urobilinogen 0.2 Leukocyte Esterase Rfl Negative 04/12/24 04/13/24 04/13/24 23:31 04:23 10:26 WBC 20.2 H RBC 3.71 L Hgb 11.4 L Hct 34.7 L MCV 93.5 MCH 30.7 MCHC 32.9 RDW 13.8 Plt Count 257 MPV 10.3 Immature Gran % (Auto) 1.3 H Neut % (Auto) 77.5 H Lymph % (Auto) 8.0 L [place] % (Auto) 12.7 H Eos % (Auto) 0.3 Baso % (Auto) 0.2 Lymph # (Auto) 1.61 [place] # (Auto) 2.6 H Eos # (Auto) 0.1 Baso # (Auto) 0.0 Abs Immat Gran (auto) 0.26 H Absolute Neuts (auto) 15.7 H Absolute Nucleated RBC 0.000 Nucleated RBC % 0.0 PT INR APTT 104.3 H 68.3 H Sodium Potassium Chloride Carbon Dioxide Anion Gap BUN Creatinine Estim Creat Clear Calc Estimated GFR Glucose Lactic Acid Calcium Total Bilirubin AST ALT Alkaline Phosphatase Troponin I < 0.012 Total Protein Albumin Lipase Urine Color Urine Appearance Urine pH Ur Specific [place] Urine Protein Urine Glucose (UA) Urine Ketones Ur Blood (Man) Urine Nitrate Urine Bilirubin Urine Urobilinogen Leukocyte Esterase Rfl Quality VTE Prophylaxis VTE prophylaxis: pharmacologic ordered
[2024-04-13 17:12] LABS: Partial Thromboplastin Time 100.6 Seconds (22.3-36.8)
[2024-04-14] VITALS (12 sets, daily range): BP systolic 103–125; BP diastolic 67–81; PULSE 55–99; RESP 16–22; TEMP 36.2–37.1; O2SAT 94–98
[2024-04-14] MEDS: DEXTROSE 5%/0.45% SOD CHL 1,000 ML 75 ML IV CONT (02:58)
[2024-04-14 05:04] LABS: Basophils Absolute Auto 0.1 K/mm3 (0.0-0.1); Basophils Percent Auto 0.2 % (0.2-1.2); Eosinophils Absolute Auto 0.2 K/mm3 (0-0.3); Eosinophils Percent Auto 0.8 % (0-4.4); Hematocrit 33.5 % (42.0-52.0); Hemoglobin 10.6 g/dL (14.0-18.0); Immature Granulocyte Absolute 0.24 K/mm3 (0.00-0.031); Immature Granulocyte Percent A 1.1 % (0-0.5); Lymphocytes Absolute Auto 1.33 K/mm3 (0.9-3.2); Lymphocytes Percent Auto 6.2 % (18.3-44.2); Mean Corpuscular HGB Conc 31.6 g/dl (32-36); Mean Corpuscular Hemoglobin 29.6 pg (26-34); Mean Corpuscular Volume 93.6 fl (80-100); Mean Platelet Volume 10.8 fl (7.4-10.4); Monocytes Absolute Auto 2.7 K/mm3 (0.1-0.6); Monocytes Percent Auto 12.4 % (2.6-8.5); Neutrophils Absolute Auto 16.9 K/mm3 (1.3-6.7); Neutrophils Percent Auto 79.3 % (45.5-73.1); Platelet Count Result 241 k/mm3 (150-375); Red Blood Count 3.58 M/mm3 (4.6-6.20); Red Cell Distribution Width 13.9 % (11.5-14.5); White Blood Count 21.3 K/mm3 (4.5-10.0)
[2024-04-14 05:27] LABS: Anisocytosis 1+; Hypochromasia 1+; Platelet Estimate Adequate (Adequate); Schistocytes None Seen
[2024-04-14 05:31] LABS: Anion Gap 7 mmol/L (4-12); Blood Urea Nitrogen 30 mg/dL (9-20); Carbon Dioxide 21 mmol/L (22-30); Chloride 105 mmol/L (98-107); Estimated CRCL calculation 81 ml/min; Estimated Glomerular Filt Rate > 60; Glucose 133 mg/dL (65-110); Potassium 4.5 mmol/L (3.4-5.0); Sodium 133 mmol/L (137-145)
[2024-04-14] MEDS: HEPARIN SOD/D5W 100 UNITS/ML 25,000 UNITS/250 ML BAG 14 UNITS IV CONT (08:16)
[2024-04-14] MEDS: polyethylene glycoL 3350 17 GM POWD.PACK PO (08:17)
[2024-04-14] MEDS: dexAMETHasone 2 MG TABLET PO (08:17)
[2024-04-14] MEDS: allopurinoL 300 MG TABLET PO (08:17)
[2024-04-14] MEDS: HYDROcodone/acetaminophen (*CRX) 10-325 MG TABLET 1 TAB PO ×3 (08:25→23:30)
[2024-04-14 08:45] LABS: Partial Thromboplastin Time 65.3 Seconds (22.3-36.8)
[2024-04-14] MEDS: HEPARIN SODIUM 5,000 UNITS/ML VIAL 3000 UNITS IV PUSH (08:55)
--- NOTE | 2024-04-14 09:33 | P.PNIM_ITS ---
Progress Note: A&P Assessment and Plan (1) Bilateral pulmonary embolism: Code(s): I26.99 - Other pulmonary embolism without acute cor pulmonale Status: Acute Assessment and Plan: placed on heparin drip (2) Abdominal pain: Code(s): R10.9 - Unspecified abdominal pain Status: Acute Assessment and Plan: likely secondary to pancreatic CA (3) Metastatic adenocarcinoma to pancreas: Code(s): C78.89 - Secondary malignant neoplasm of other digestive organs Status: Acute Assessment and Plan: patient agreeable to hospice (4) Hypertension: Code(s): I10 - Essential (primary) hypertension Status: Acute Assessment and Plan: continue to monitor Plan 63 year old male with recently diagnosed metastatic pancreatic cancer status post liver biopsy done and similarly the [facility] came into the hospital with intractable abdominal pain, was found to have bilateral pulmonary embolism. 1. Bilateral pulmonary embolism with DVT: CTA chest was performed that showed acute pulmonary embolism in the lower lobes of the right middle lobe Doppler study showed [id number] DVT in the left posterior tibial vein. Currently on room air Switch from heparin drip to Lovenox 1 mg per kilos q.12 hour Pending echocardiogram Noted leukocytosis, Pending blood cultures 2. Metastatic pancreatic adenocarcinoma: CT: Pancreatic mass, consistent with primary malignancy, with invasion of the left adrenal gland, left kidney, and splenic flexure of the colon with partial colonic obstruction. Await oncology consult Family is leaning towards hospice SIRS: Upon arrival, patient's tachypnea, patient is afebrile, leukocytosis lactic acidosis no obvious some infection, possible due to pancreatic cancer and DVT Continue normal saline IV 3. Code status: DNR Subjective Date/time seen: 04/14/24 09:33 Interval history: I saw exam patient today. Patient feels abdomen pain is well controlled with pain medication. Patient denies nausea vomiting black stool, fever, chills peers labs reviewed. No new issue even overnight Exam Narrative: GENERAL: Pleasant, in no acute distress. Well-nourished. - EYES: EOMI. Anicteric. - HENT: Moist mucous membranes. - LUNGS: Clear to auscultation bilateral ly, no wheezing, rhonchi, or rales. - CARDIOVASCULAR: Regular rate and rhyth m. No murmur. No JVD. - ABDOMEN: Soft, mid abdominal tender an d non-distended. No palpable masses. - EXTREMITIES: No edema. Peripheral puls es 2+. Non-tender. - NEUROLOGIC: No focal neurological defi cits. CN II-XII grossly intact. - PSYCHIATRIC: Awake, Alert and oriented x 3. Appropriate mood and affect. - SKIN: No rashes or lesions. Warm. - LYMPH: No cervical lymphadenopathy. Objective Data Vital Signs Vital Signs: Vital Signs - 24 hr 04/13/24 10:00 04/13/24 11:27 04/13/24 12:00 Temperature 97.4 F L Pulse Rate 81 100 102 H Respiratory Rate 16 Blood Pressure 110/77 Pulse Oximetry 96 Oxygen Delivery 04/13/24 12:00 04/13/24 14:00 04/13/24 16:00 Temperature Pulse Rate 74 72 Respiratory Rate Blood Pressure Pulse Oximetry Oxygen Delivery Room Air 04/13/24 16:00 04/13/24 16:00 04/13/24 18:00 Temperature 97.8 F Pulse Rate 69 77 Respiratory Rate 20 Blood Pressure 100/66 Pulse Oximetry 95 Oxygen Delivery Room Air 04/13/24 20:19 04/13/24 20:00 04/13/24 20:00 Temperature 98 F Pulse Rate 81 81 70 Respiratory Rate 22 H 22 H Blood Pressure 98/58 L Pulse Oximetry 97 97 Oxygen Delivery Room Air 04/13/24 21:22 04/13/24 23:31 04/14/24 00:00 Temperature 98.1 F Pulse Rate 58 L 59 L 59 L Respiratory Rate 22 H 22 H Blood Pressure 108/72 Pulse Oximetry 97 97 Oxygen Delivery Room Air 04/14/24 00:00 04/14/24 02:00 04/14/24 04:20 Temperature 98 F Pulse Rate 55 L 57 L 60 Respiratory Rate 18 Blood Pressure 103/67 Pulse Oximetry 97 Oxygen Delivery 04/14/24 04:00 04/14/24 04:00 04/14/24 06:00 Temperature Pulse Rate 60 60 65 Respiratory Rate 18 Blood Pressure Pulse Oximetry 97 Oxygen Delivery Room Air 04/14/24 07:38 Temperature 98.7 F Pulse Rate 98 Respiratory Rate 16 Blood Pressure 120/81 Pulse Oximetry 96 Oxygen Delivery Intake/Output Intake/Output: Intake & Output 04/11/24 04/12/24 04/13/24 04/14/24 23:59 23:59 23:59 23:59 Intake Total 1000 2719.9 1514.4 Output Total 1370 1000 Balance 1000 1349.9 514.4 Meds/Results Medications: Active Medications Generic Name Dose Route Start Last Admin Trade Name Freq PRN Reason Stop Dose Admin Acetaminophen 1,000 mg 04/13/24 05:39 Acetaminophen 500 Mg Tablet PO Q6H PRN Mild Pain (1-3) or Fever Hydrocodone Bitart/Acetaminophen 1 tab 04/13/24 05:40 04/14/24 08:25 Hydrocodone/Acetaminophen (*Crx) 10-325 Mg Tablet PO 1 tab Q6H PRN Administration Pain (Scale Score 4-6) Al Hydrox/Mg Hydrox/Simethicone 30 ml 04/13/24 05:39 Mag Hydrox/Al Hydrox/Simeth 30 Ml Udc PO Q6H PRN Indigestion Allopurinol 300 mg 04/13/24 08:00 04/14/24 08:17 Allopurinol 300 Mg Tablet PO 300 mg DAILY@0800 [facility] Administration Dexamethasone 2 mg 04/13/24 08:00 04/14/24 08:17 Dexamethasone 2 Mg Tablet PO 2 mg DAILY@0800 [facility] Administration Fentanyl 25 mcg 04/12/24 23:05 04/13/24 00:02 Fentanyl (*Crx) 25 Mcg Patch TRANSDERM 25 mcg Q72HR JUNG Administration Heparin Sodium (Porcine) 6,500 units 04/12/24 20:07 Heparin Sodium 5,000 Units/Ml Vial IV PUSH PRN PRN aPTT less than 55 seconds Heparin Sodium (Porcine) 3,000 units 04/12/24 20:07 04/14/24 08:55 Heparin Sodium 5,000 Units/Ml Vial IV PUSH 3,000 units PRN PRN Administration aPTT 55 - 70 seconds Hydromorphone HCl 1 mg 04/12/24 23:01 Hydromorphone Hcl Inj (*Crx) 1 Mg/Ml Syr IV PUSH Q3H PRN Pain Rated 7-10 Heparin Sodium/Dextrose 25,000 units in 250 mls @ 16 mls/hr 04/12/24 20:10 04/14/24 08:56 Heparin Sodium/D5w 100 Units/Ml IV CONT 1,600 units/hr .[id number] JUNG 16 mls/hr Titration Protocol 1,600 UNITS/HR Dextrose/Sodium Chloride 1,000 mls @ 75 mls/hr 04/12/24 23:05 04/14/24 02:58 Dextrose 5% Sodium Chloride 0.45% IV CONT 75 mls/hr .[id number] JUNG Administration Polyethylene Glycol 17 gm 04/13/24 05:39 04/14/24 08:17 Polyethylene Glycol 3350 17 Gm Powd.Pack PO 17 gm QAM PRN Administration Constipation Prochlorperazine Edisylate 10 mg 04/13/24 12:01 04/13/24 13:39 Prochlorperazine Edisylate 10 Mg/2 Ml Vial IV PUSH 10 mg Q6H PRN Administration Hiccups Trazodone HCl 50 mg 04/12/24 23:02 04/13/24 00:24 Trazodone Hcl 50 Mg Tablet PO 50 mg HS PRN Administration Insomnia Trazodone HCl 50 mg 04/13/24 05:40 Trazodone Hcl 50 Mg Tablet PO HS PRN Insomnia Radiology Results: ITS Impressions Chest/Abdomen/Pelvis CTA 04/12/24 18:11 IMPRESSION: 1. Acute pulmonary emboli in the lower lobes and right middle lobe. I called this result to Dr. Kevin. 2. Pancreatic mass, consistent with primary malignancy, with invasion of the left adrenal gland, left kidney, and splenic flexure of the colon with partial colonic obstruction. 3. Pulmonary nodules, liver masses, abdominal lymphadenopathy, and peritoneal masses, consistent with metastatic disease. 4. Splenic infarct. Venous Doppler Study 04/13/24 13:33 IMPRESSION: 1. [id number] deep venous thrombosis in the left posterior tibial vein. 2. No deep venous anastomosis in the right lower limb. Labs Labs: Laboratory Results - last 24 hr 04/13/24 04/13/24 04/13/24 10:26 16:50 23:12 WBC RBC Hgb Hct MCV MCH MCHC RDW Plt Count MPV Immature Gran % (Auto) Neut % (Auto) Lymph % (Auto) [place] % (Auto) Eos % (Auto) Baso % (Auto) Lymph # (Auto) [place] # (Auto) Eos # (Auto) Baso # (Auto) Abs Immat Gran (auto) Absolute Neuts (auto) Absolute Nucleated RBC Nucleated RBC % Platelet Estimate Hypochromasia Anisocytosis Schistocytes APTT 68.3 H 100.6 H 137.0 H Sodium Potassium Chloride Carbon Dioxide Anion Gap BUN Creatinine Estim Creat Clear Calc Estimated GFR Glucose Calcium 04/14/24 04/14/24 04:53 08:18 WBC 21.3 H RBC 3.58 L Hgb 10.6 L Hct 33.5 L MCV 93.6 MCH 29.6 MCHC 31.6 L RDW 13.9 Plt Count 241 MPV 10.8 H Immature Gran % (Auto) 1.1 H Neut % (Auto) 79.3 H Lymph % (Auto) 6.2 L [place] % (Auto) 12.4 H Eos % (Auto) 0.8 Baso % (Auto) 0.2 Lymph # (Auto) 1.33 [place] # (Auto) 2.7 H Eos # (Auto) 0.2 Baso # (Auto) 0.1 Abs Immat Gran (auto) 0.24 H Absolute Neuts (auto) 16.9 H Absolute Nucleated RBC 0.000 Nucleated RBC % 0.0 Platelet Estimate Adequate Hypochromasia 1+ Anisocytosis 1+ Schistocytes None seen APTT 65.3 H Sodium 133 L Potassium 4.5 Chloride 105 Carbon Dioxide 21 L Anion Gap 7 BUN 30 H D Creatinine 0.90 Estim Creat Clear Calc 81 Estimated GFR > 60 Glucose 133 H Calcium 9.0
[2024-04-14] MEDS: ENOXAPARIN 80 MG/0.8 ML SYRINGE SUB-Q ×2 (11:46→20:51)
[2024-04-14] MEDS: SODIUM CHLORIDE 0.9% IV 1,000 ML 100 ML IV CONT ×2 (11:47→20:49)
--- NOTE | 2024-04-14 14:09 | PC.NURSE ---
Pt transferred to 3 medical room 342. This RN gave report to receiving RN.
--- NOTE | 2024-04-14 14:34 | PC.NURSE ---
This patient, Alan Spivey, was received from on 04/14/24 at 1421. Patient/family oriented to unit policies and routines.
[2024-04-14] MEDS: traZODone HCL 50 MG TABLET PO (20:49)
[2024-04-15 06:00] VITALS: BP 131/71; PULSE 65; RESP 16; TEMP 36.4; O2SAT 95
[2024-04-15] MEDS: SODIUM CHLORIDE 0.9% IV 1,000 ML 100 ML IV CONT (06:03)
[2024-04-15] MEDS: HYDROcodone/acetaminophen (*CRX) 10-325 MG TABLET 1 TAB PO ×3 (06:03→20:49)
--- NOTE | 2024-04-15 08:40 | P.PNIM_ITS ---
Progress Note: A&P Assessment and Plan (1) Bilateral pulmonary embolism: Code(s): I26.99 - Other pulmonary embolism without acute cor pulmonale Status: Acute Assessment and Plan: placed on heparin drip (2) Abdominal pain: Code(s): R10.9 - Unspecified abdominal pain Status: Acute Assessment and Plan: likely secondary to pancreatic CA (3) Metastatic adenocarcinoma to pancreas: Code(s): C78.89 - Secondary malignant neoplasm of other digestive organs Status: Acute Assessment and Plan: patient agreeable to hospice (4) Hypertension: Code(s): I10 - Essential (primary) hypertension Status: Acute Assessment and Plan: continue to monitor Plan 63 year old male with recently diagnosed metastatic pancreatic cancer status post liver biopsy done and similarly the with hospital came into the hospital with intractable abdominal pain, was found to have bilateral pulmonary embolism. 1. Bilateral pulmonary embolism with DVT: CTA chest was performed that showed acute pulmonary embolism in the lower lobes of the right middle lobe Doppler study showed [id number] DVT in the left posterior tibial vein. Currently on room air Switch from heparin drip to Lovenox 1 mg per kilos q.12 hour Pending echocardiogram Noted leukocytosis, No growth from the blood cultures Metastatic pancreatic adenocarcinoma: CT: Pancreatic mass, consistent with primary malignancy, with invasion of the left adrenal gland, left kidney, and splenic flexure of the colon with partial colonic obstruction. follow with the oncologist in office who accepts his insurance Family is leaning towards hospice SIRS: Upon arrival, patient's tachypnea, patient is afebrile, leukocytosis lactic acidosis no obvious some infection, possible due to pancreatic cancer and DVT receives normal saline IV afeb 3. Code status: DNR Subjective Date/time seen: 04/15/24 08:40 Interval history: I saw exam patient today. Patient she denies chest pain, shortness of breath. Patient denies nausea vomiting black stool, fever, chills peers labs reviewed. No new issue even overnight Exam Narrative: GENERAL: Pleasant, in no acute distress. Well-nourished. - EYES: EOMI. Anicteric. - HENT: Moist mucous membranes. - LUNGS: Clear to auscultation bilateral ly, no wheezing, rhonchi, or rales. - CARDIOVASCULAR: Regular rate and rhyth m. No murmur. No JVD. - ABDOMEN: Soft, mid abdominal tender an d non-distended. No palpable masses. - EXTREMITIES: No edema. Peripheral puls es 2+. Non-tender. - NEUROLOGIC: No focal neurological defi cits. CN II-XII grossly intact. - PSYCHIATRIC: Awake, Alert and oriented x 3. Appropriate mood and affect. - SKIN: No rashes or lesions. Warm. - LYMPH: No cervical lymphadenopathy. Objective Data Vital Signs Vital Signs: Vital Signs - 24 hr 04/14/24 10:00 04/14/24 11:41 04/14/24 12:00 Temperature 98.0 F Pulse Rate 60 85 88 Respiratory Rate 16 Blood Pressure 118/70 Pulse Oximetry 98 Oxygen Delivery 04/14/24 15:51 04/14/24 20:00 04/14/24 22:06 Temperature 97.9 F 97.1 F L Pulse Rate 99 69 Respiratory Rate 16 16 Blood Pressure 125/74 105/71 Pulse Oximetry 98 94 Oxygen Delivery Room Air 04/15/24 06:00 Temperature 97.6 F Pulse Rate 65 Respiratory Rate 16 Blood Pressure 131/71 Pulse Oximetry 95 Oxygen Delivery Intake/Output Intake/Output: Intake & Output 04/12/24 04/13/24 04/14/24 04/15/24 23:59 23:59 23:59 23:59 Intake Total 1000 2719.9 4094.7 1523.3 Output Total 1370 1000 3 Balance 1000 1349.9 3094.7 1520.3 Meds/Results Medications: Active Medications Generic Name Dose Route Start Last Admin Trade Name Freq PRN Reason Stop Dose Admin Acetaminophen 1,000 mg 04/13/24 05:39 Acetaminophen 500 Mg Tablet PO Q6H PRN Mild Pain (1-3) or Fever Hydrocodone Bitart/Acetaminophen 1 tab 04/13/24 05:40 04/15/24 06:03 Hydrocodone/Acetaminophen (*Crx) 10-325 Mg Tablet PO 1 tab Q6H PRN Administration Pain (Scale Score 4-6) Al Hydrox/Mg Hydrox/Simethicone 30 ml 04/13/24 05:39 Mag Hydrox/Al Hydrox/Simeth 30 Ml Udc PO Q6H PRN Indigestion Allopurinol 300 mg 04/13/24 08:00 04/14/24 08:17 Allopurinol 300 Mg Tablet PO 300 mg DAILY@0800 JUN[facility] Administration Dexamethasone 2 mg 04/13/24 08:00 04/14/24 08:17 Dexamethasone 2 Mg Tablet PO 2 mg DAILY@0800 JUNG Administration Enoxaparin Sodium 80 mg 04/14/24 11:00 04/14/24 20:51 Enoxaparin 80 Mg/0.8 Ml Syringe SUB-Q 80 mg Q12HR JUNG Administration Fentanyl 25 mcg 04/12/24 23:05 04/13/24 00:02 Fentanyl (*Crx) 25 Mcg Patch TRANSDERM 25 mcg Q72HR JUNG Administration Hydromorphone HCl 1 mg 04/12/24 23:01 Hydromorphone Hcl Inj (*Crx) 1 Mg/Ml Syr IV PUSH Q3H PRN Pain Rated 7-10 Sodium Chloride 1,000 mls @ 100 mls/hr 04/14/24 09:40 04/15/24 06:03 Normal Saline Iv IV CONT 100 mls/hr .Q10H JUNG Administration Polyethylene Glycol 17 gm 04/13/24 05:39 04/14/24 08:17 Polyethylene Glycol 3350 17 Gm Powd.Pack PO 17 gm QAM PRN Administration Constipation Prochlorperazine Edisylate 10 mg 04/13/24 12:01 04/13/24 13:39 Prochlorperazine Edisylate 10 Mg/2 Ml Vial IV PUSH 10 mg Q6H PRN Administration Hiccups Trazodone HCl 50 mg 04/12/24 23:02 04/14/24 20:49 Trazodone Hcl 50 Mg Tablet PO 50 mg HS PRN Administration Insomnia Radiology Results: ITS Impressions Chest/Abdomen/Pelvis CTA 04/12/24 18:11 IMPRESSION: 1. Acute pulmonary emboli in the lower lobes and right middle lobe. I called this result to Dr. Kevin. 2. Pancreatic mass, consistent with primary malignancy, with invasion of the left adrenal gland, left kidney, and splenic flexure of the colon with partial colonic obstruction. 3. Pulmonary nodules, liver masses, abdominal lymphadenopathy, and peritoneal masses, consistent with metastatic disease. 4. Splenic infarct. Venous Doppler Study 04/13/24 13:33 IMPRESSION: 1. [id number] deep venous thrombosis in the left posterior tibial vein. 2. No deep venous anastomosis in the right lower limb. Labs Labs: Laboratory Results - last 24 hr 04/14/24 08:18 APTT 65.3 H
[2024-04-15 09:25] LABS: Basophils Absolute Auto 0.1 K/mm3 (0.0-0.1); Basophils Percent Auto 0.3 % (0.2-1.2); Eosinophils Absolute Auto 0.3 K/mm3 (0-0.3); Eosinophils Percent Auto 1.4 % (0-4.4); Immature Granulocyte Absolute 0.39 K/mm3 (0.00-0.031); Immature Granulocyte Percent A 1.7 % (0-0.5); Lymphocytes Absolute Auto 1.88 K/mm3 (0.9-3.2); Lymphocytes Percent Auto 8.2 % (18.3-44.2); Mean Corpuscular HGB Conc 32.4 g/dl (32-36); Mean Corpuscular Hemoglobin 30.7 pg (26-34); Mean Corpuscular Volume 94.6 fl (80-100); Monocytes Absolute Auto 2.5 K/mm3 (0.1-0.6); Neutrophils Absolute Auto 17.8 K/mm3 (1.3-6.7); Neutrophils Percent Auto 77.4 % (45.5-73.1); Nucleated Red Blood Cells Perc 0.1 % (0.0-0.2); Platelet Count Result 308 k/mm3 (150-375); Red Blood Count 3.91 M/mm3 (4.6-6.20); Red Cell Distribution Width 14.2 % (11.5-14.5)
[2024-04-15 09:32] LABS: Anion Gap 9 mmol/L (4-12); Blood Urea Nitrogen 25 mg/dL (9-20); Calcium 9.3 mg/dL (8.4-10.2); Carbon Dioxide 20 mmol/L (22-30); Chloride 106 mmol/L (98-107); Estimated CRCL calculation 67 ml/min; Estimated Glomerular Filt Rate > 60; Glucose 116 mg/dL (65-110); Potassium 4.2 mmol/L (3.4-5.0); Sodium 135 mmol/L (137-145)
[2024-04-15] MEDS: ENOXAPARIN 80 MG/0.8 ML SYRINGE SUB-Q ×2 (09:46→20:49)
[2024-04-15] MEDS: dexAMETHasone 2 MG TABLET PO (09:46)
[2024-04-15] MEDS: allopurinoL 300 MG TABLET PO (09:46)
[2024-04-15] MEDS: fentaNYL (*CRX) 25 MCG PATCH TRANSDERM (09:47)
--- NOTE | 2024-04-15 12:32 | PC.NURSE ---
Assessed patient's orientation status, he was able to answer his name & birthdate, [facility], and today's date. Spoke with patient & sister, Clarita via his phone RE: follow-up with oncologist that is in-network for his insurance, [facility]. Dr Peter Jeong with [facility] on [facility] in [place] was listed on [facility] website. The number for their office is [phone]. Clarita requested that patient be discharged with pain medication and anxiety medication. I let Dr Valle aware of this request. I returned a call for his sister, but was only able to reach [place], his other sister whose number is listed in the computer as a contact. I let her know that [facility] will be discharging Zach tomorrow and will have Care Coordination call the oncologist's office and set up an appointment for him outpatient for follow-up with them to discuss chemo. Nurse will also need to provide educate patient and family about how to inject lovenox, as he will be discharged with this medication.
[2024-04-15 14:09] VITALS: BP 117/75; PULSE 98; RESP 19; TEMP 36.7; O2SAT 96
[2024-04-15] MEDS: traZODone HCL 50 MG TABLET PO (20:49)
[2024-04-15 22:20] VITALS: BP 117/72; PULSE 78; RESP 16; TEMP 36.6; O2SAT 93
[2024-04-16 06:00] VITALS: BP 114/76; PULSE 75; RESP 16; TEMP 36.1; O2SAT 95
[2024-04-16 06:00] LABS: Basophils Absolute Auto 0.1 K/mm3 (0.0-0.1); Basophils Percent Auto 0.3 % (0.2-1.2); Eosinophils Absolute Auto 0.2 K/mm3 (0-0.3); Hematocrit 32.5 % (42.0-52.0); Hemoglobin 10.5 g/dL (14.0-18.0); Immature Granulocyte Absolute 0.41 K/mm3 (0.00-0.031); Lymphocytes Absolute Auto 1.62 K/mm3 (0.9-3.2); Lymphocytes Percent Auto 7.7 % (18.3-44.2); Mean Corpuscular HGB Conc 32.3 g/dl (32-36); Mean Corpuscular Hemoglobin 30.5 pg (26-34); Mean Corpuscular Volume 94.5 fl (80-100); Mean Platelet Volume 10.6 fl (7.4-10.4); Monocytes Absolute Auto 2.8 K/mm3 (0.1-0.6); Monocytes Percent Auto 13.4 % (2.6-8.5); Neutrophils Absolute Auto 15.9 K/mm3 (1.3-6.7); Neutrophils Percent Auto 75.6 % (45.5-73.1); Platelet Count Result 285 k/mm3 (150-375); Red Blood Count 3.44 M/mm3 (4.6-6.20); Red Cell Distribution Width 14.3 % (11.5-14.5)
[2024-04-16 06:14] LABS: Anion Gap 6 mmol/L (4-12); Blood Urea Nitrogen 29 mg/dL (9-20); Calcium 9.1 mg/dL (8.4-10.2); Carbon Dioxide 22 mmol/L (22-30); Chloride 105 mmol/L (98-107); Estimated CRCL calculation 73 ml/min; Estimated Glomerular Filt Rate > 60; Glucose 120 mg/dL (65-110); Potassium 4.2 mmol/L (3.4-5.0); Sodium 133 mmol/L (137-145)
--- NOTE | 2024-04-16 08:22 | PM.IMPN ---
Progress Note: A&P Assessment and Plan (1) Bilateral pulmonary embolism: Code(s): I26.99 - Other pulmonary embolism without acute cor pulmonale Status: Acute Assessment and Plan: placed on heparin drip (2) Abdominal pain: Code(s): R10.9 - Unspecified abdominal pain Status: Acute Assessment and Plan: likely secondary to pancreatic CA (3) Metastatic adenocarcinoma to pancreas: Code(s): C78.89 - Secondary malignant neoplasm of other digestive organs Status: Acute Assessment and Plan: patient agreeable to hospice (4) Hypertension: Code(s): I10 - Essential (primary) hypertension Status: Acute Assessment and Plan: continue to monitor Plan 63 year old male with recently diagnosed metastatic pancreatic cancer status post liver biopsy done and similarly the [facility] came into the hospital with intractable abdominal pain, was found to have bilateral pulmonary embolism. 1. Bilateral pulmonary embolism with DVT: CTA chest was performed that showed acute pulmonary embolism in the lower lobes of the right middle lobe Doppler study showed [id number] DVT in the left posterior tibial vein. Currently on room air Switch from heparin drip to Lovenox 1 mg per kilos q.12 hour echocardiogram 1. Left ventricular chamber dimension is normal. 2. Left ventricular systolic function is normal, estimated at 60-65%. 3. There is mildly increased left ventricular wall thickness. 4. The left ventricular diastolic function is grade I diastolic dysfunction. 5. The basal inferolateral wall, and mid inferolateral wall are hypokinetic. 6. Right ventricular chamber dimension is mildly enlarged. 7. Left atrial chamber dimension is mildly enlarged. 8. There is mild mitral valve regurgitation. 9. There is mild tricuspid valve regurgitation. 10. There is mild pulmonic regurgitation. Noted leukocytosis, No growth from the blood cultures Metastatic pancreatic adenocarcinoma: CT: Pancreatic mass, consistent with primary malignancy, with invasion of the left adrenal gland, left kidney, and splenic flexure of the colon with partial colonic obstruction. follow with the oncologist in office who accepts his insurance SIRS: Upon arrival, patient's tachypnea, patient is afebrile, leukocytosis lactic acidosis no obvious some infection, possible due to pancreatic cancer and DVT receives normal saline IV afeb 3. Code status: DNR Subjective Date/time seen: 04/16/24 08:22 Interval history: I saw exam patient today. Patient she denies chest pain, shortness of breath. Patient denies nausea vomiting black stool, fever, chills peers labs reviewed. No new issue even overnight Exam Narrative: GENERAL: Pleasant, in no acute distress. Well-nourished. - EYES: EOMI. Anicteric. - HENT: Moist mucous membranes. - LUNGS: Clear to auscultation bilaterally, no wheezing, rhonchi, or rales. - CARDIOVASCULAR: Regular rate and rhythm. No murmur. No JVD. - ABDOMEN: Soft, mid abdominal tender and non-distended. No palpable masses. - EXTREMITIES: No edema. Peripheral pulses 2+. Non-tender. - NEUROLOGIC: No focal neurological deficits. CN II-XII grossly intact. - PSYCHIATRIC: Awake, Alert and oriented x 3. Appropriate mood and affect. - SKIN: No rashes or lesions. Warm. - LYMPH: No cervical lymphadenopathy. Objective Data Vital Signs Vital Signs: Vital Signs - 24 hr 04/15/24 14:09 04/15/24 09:50 04/15/24 15:50 Temperature 98.0 F Pulse Rate 98 Respiratory Rate 19 Blood Pressure 117/75 Pulse Oximetry 96 Oxygen Delivery Room Air Room Air 04/15/24 22:20 04/15/24 20:00 04/16/24 06:00 Temperature 97.8 F 97.0 F L Pulse Rate 78 75 Respiratory Rate 16 16 Blood Pressure 117/72 114/76 Pulse Oximetry 93 95 Oxygen Delivery Room Air Intake/Output Intake/Output: Intake & Output 04/13/24 04/14/24 04/15/24 04/16/24 23:59 23:59 23:59 23:59 Intake Total 2719.9 4094.7 2203.3 500 Output Total 1370 1000 4 Balance 1349.9 3094.7 2199.3 500 Meds/Results Medications: Active Medications Generic Name Dose Route Start Last Admin Trade Name Freq PRN Reason Stop Dose Admin Acetaminophen 1,000 mg 04/13/24 05:39 Acetaminophen 500 Mg Tablet PO Q6H PRN Mild Pain (1-3) or Fever Hydrocodone Bitart/Acetaminophen 1 tab 04/13/24 05:40 04/15/24 20:49 Hydrocodone/Acetaminophen (*Crx) 10-325 Mg Tablet PO 1 tab Q6H PRN Administration Pain (Scale Score 4-6) Al Hydrox/Mg Hydrox/Simethicone 30 ml 04/13/24 05:39 Mag Hydrox/Al Hydrox/Simeth 30 Ml Udc PO Q6H PRN Indigestion Allopurinol 300 mg 04/13/24 08:00 04/15/24 09:46 Allopurinol 300 Mg Tablet PO 300 mg DAILY@0800 JUNG Administration Dexamethasone 2 mg 04/13/24 08:00 04/15/24 09:46 Dexamethasone 2 Mg Tablet PO 2 mg DAILY@0800 JUNG Administration Enoxaparin Sodium 80 mg 04/14/24 11:00 04/15/24 20:49 Enoxaparin 80 Mg/0.8 Ml Syringe SUB-Q 80 mg Q12HR JUNG Administration Fentanyl 25 mcg 04/12/24 23:05 04/15/24 09:47 Fentanyl (*Crx) 25 Mcg Patch TRANSDERM 25 mcg Q72HR JUNG Administration Hydromorphone HCl 1 mg 04/12/24 23:01 Hydromorphone Hcl Inj (*Crx) 1 Mg/Ml Syr IV PUSH Q3H PRN Pain Rated 7-10 Polyethylene Glycol 17 gm 04/13/24 05:39 04/14/24 08:17 Polyethylene Glycol 3350 17 Gm Powd.Pack PO 17 gm QAM PRN Administration Constipation Prochlorperazine Edisylate 10 mg 04/13/24 12:01 04/13/24 13:39 Prochlorperazine Edisylate 10 Mg/2 Ml Vial IV PUSH 10 mg Q6H PRN Administration Hiccups Trazodone HCl 50 mg 04/12/24 23:02 04/15/24 20:49 Trazodone Hcl 50 Mg Tablet PO 50 mg HS PRN Administration Insomnia Radiology Results: ITS Impressions Chest/Abdomen/Pelvis CTA 04/12/24 18:11 IMPRESSION: 1. Acute pulmonary emboli in the lower lobes and right middle lobe. I called this result to Dr. Kevin. 2. Pancreatic mass, consistent with primary malignancy, with invasion of the left adrenal gland, left kidney, and splenic flexure of the colon with partial colonic obstruction. 3. Pulmonary nodules, liver masses, abdominal lymphadenopathy, and peritoneal masses, consistent with metastatic disease. 4. Splenic infarct. Venous Doppler Study 04/13/24 13:33 IMPRESSION: 1. Qbmtw-wmu-csky deep venous thrombosis in the left posterior tibial vein. 2. No deep venous anastomosis in the right lower limb. Labs Labs: Laboratory Results - last 24 hr 04/15/24 04/16/24 09:06 05:47 WBC 23.0 H 21.0 H RBC 3.91 L 3.44 L Hgb 12.0 L 10.5 L Hct 37.0 L 32.5 L MCV 94.6 94.5 MCH 30.7 30.5 MCHC 32.4 32.3 RDW 14.2 14.3 Plt Count 308 285 MPV 11.0 H 10.6 H Immature Gran % (Auto) 1.7 H 2.0 H Neut % (Auto) 77.4 H 75.6 H Lymph % (Auto) 8.2 L 7.7 L [place] % (Auto) 11.0 H 13.4 H Eos % (Auto) 1.4 1.0 Baso % (Auto) 0.3 0.3 Lymph # (Auto) 1.88 1.62 [place] # (Auto) 2.5 H 2.8 H Eos # (Auto) 0.3 0.2 Baso # (Auto) 0.1 0.1 Abs Immat Gran (auto) 0.39 H 0.41 H Absolute Neuts (auto) 17.8 H 15.9 H Absolute Nucleated RBC 0.020 H 0.000 Nucleated RBC % 0.1 0.0 Sodium 135 L 133 L Potassium 4.2 4.2 Chloride 106 105 Carbon Dioxide 20 L 22 Anion Gap 9 6 BUN 25 H 29 H Creatinine 1.10 1.00 Estim Creat Clear Calc 67 73 Estimated GFR > 60 > 60 Glucose 116 H 120 H Calcium 9.3 9.1
[2024-04-16] MEDS: allopurinoL 300 MG TABLET PO (09:53)
[2024-04-16] MEDS: dexAMETHasone 2 MG TABLET PO (09:53)
[2024-04-16] MEDS: ENOXAPARIN 80 MG/0.8 ML SYRINGE SUB-Q (09:54)
[2024-04-16] MEDS: SENNA/DOCUSATE SODIUM TABLET 1 TAB PO (11:36)
[2024-04-16] MEDS: polyethylene glycoL 3350 17 GM POWD.PACK PO (11:36)
--- NOTE | 2024-04-17 22:50 | PM.DS ---
DS: Admitting Diagnosis Discharge Date 04/16/24 Admitting Diagnosis (1) Bilateral pulmonary embolism: Code(s): I26.99 - Other pulmonary embolism without acute cor pulmonale Status: Acute Assessment and Plan: placed on heparin drip (2) Abdominal pain: Code(s): R10.9 - Unspecified abdominal pain Status: Acute Assessment and Plan: likely secondary to pancreatic CA (3) Metastatic adenocarcinoma to pancreas: Code(s): C78.89 - Secondary malignant neoplasm of other digestive organs Status: Acute Assessment and Plan: patient agreeable to hospice (4) Hypertension: Code(s): I10 - Essential (primary) hypertension Status: Acute Assessment and Plan: DS: Discharge Diagnosis Discharge Diagnosis (1) Bilateral pulmonary embolism: Code(s): I26.99 - Other pulmonary embolism without acute cor pulmonale Status: Acute Assessment and Plan: placed on heparin drip (2) Abdominal pain: Code(s): R10.9 - Unspecified abdominal pain Status: Acute Assessment and Plan: likely secondary to pancreatic CA (3) Metastatic adenocarcinoma to pancreas: Code(s): C78.89 - Secondary malignant neoplasm of other digestive organs Status: Acute Assessment and Plan: patient agreeable to hospice (4) Hypertension: Code(s): I10 - Essential (primary) hypertension Status: Acute Assessment and Plan: continue to monitor DS: Summary Hospital Course Hospital Course: 63 year old male with recently diagnosed metastatic pancreatic cancer status post liver biopsy done and similarly the with hospital came into the hospital with intractable abdominal pain, was found to have bilateral pulmonary embolism. the following medial issues have been addressed during hospitalization 1. Bilateral pulmonary embolism with DVT: CTA chest was performed that showed acute pulmonary embolism in the lower lobes of the right middle lobe Doppler study showed [id number]-[id number] DVT in the left posterior tibial vein. Currently on room air Switch from heparin drip to Lovenox 1 mg per kilos q.12 hour echocardiogram 1. Left ventricular chamber dimension is normal. 2. Left ventricular systolic function is normal, estimated at 60-65%. 3. There is mildly increased left ventricular wall thickness. 4. The left ventricular diastolic function is grade I diastolic dysfunction. 5. The basal inferolateral wall, and mid inferolateral wall are hypokinetic. 6. Right ventricular chamber dimension is mildly enlarged. 7. Left atrial chamber dimension is mildly enlarged. 8. There is mild mitral valve regurgitation. 9. There is mild tricuspid valve regurgitation. 10. There is mild pulmonic regurgitation. Noted leukocytosis, No growth from the blood cultures Metastatic pancreatic adenocarcinoma: CT: Pancreatic mass, consistent with primary malignancy, with invasion of the left adrenal gland, left kidney, and splenic flexure of the colon with partial colonic obstruction. follow with the oncologist in office who accepts his insurance SIRS: Upon arrival, patient's tachypnea, patient is afebrile, leukocytosis lactic acidosis no obvious some infection, possible due to pancreatic cancer and DVT receives normal saline IV afeb 3. Code status: DNR Time Spent with Patient Time attestation: Total time spent providing and/or coordinating discharge services: Exam Narrative: GENERAL: Pleasant, in no acute distress. Well-nourished. - EYES: EOMI. Anicteric. - HENT: Moist mucous membranes. - LUNGS: Clear to auscultation bilaterally, no wheezing, rhonchi, or rales. - CARDIOVASCULAR: Regular rate and rhythm. No murmur. No JVD. - ABDOMEN: Soft, mid abdominal tender and non-distended. No palpable masses. - EXTREMITIES: No edema. Peripheral pulses 2+. Non-tender. - NEUROLOGIC: No focal neurological deficits. CN II-XII grossly intact. - PSYCHIATRIC: Awake, Alert and oriented x 3. Appropriate mood and affect. - SKIN: No rashes or lesions. Warm. - LYMPH: No cervical lymphadenopathy. DS: Data Data Completed and Pending Labs on day of discharge: Preliminary micro results at discharge 04/13/24 10:57 Blood Culture - Preliminary Blood 04/13/24 11:01 Blood Culture - Preliminary Blood Discharge Plan Discharge Attending physician on discharge: Kya Valle Consulting providers: Azar Echevarria; Tee Armas; Chip Dawn V.; Adrián Bernal; Andrew Duarte; Adelaide Bobby Discharging Clinician: Kya Valle Anticipated Discharge Date/Time: 04/16/24 11:32 Patient Disposition: Home, Self-Care Activity: unlimited Diet: as tolerated Discharge Instructions: Patient has appointment on Tuesday, April 08, 2024 at 3:00 [address]. with: Dr. Todd Little MD [facility] [address] [place] [address] [id number] Patient Instructions: Antibiotic Form, Pulmonary Embolism (GEN) Stand Alone Forms: General Discharge Information Follow-up/Referrals: Chapito,Tera Wilson MD [Primary Care Provider] - (Patient needs to see primary care doctor in 1 week) Discharge Medications: New enoxaparin [Lovenox] 80 mg/0.8 mL Syringe 80 mg subcut Q12HR Qty: 48 0RF oxycodone 5 mg tablet 5 mg PO Q6H PRN (Reason: pain) Qty: 20 0RF sennosides-docusate sodium [Senokot-S] 8.6-50 mg Tablet 1 tab-cap PO BID PRN (Reason: Constipation) Qty: 60 0RF Continued atorvastatin 40 mg tablet 40 mg PO DAILY Hold Instructions: until seen by his [facility] care provider hydrocodone-acetaminophen 10-325 mg tablet 1 tablet PO Q6H PRN (Reason: Pain (Scale Score 4-6)) dexamethasone 2 mg tablet 2 mg PO DAILY allopurinol 300 mg tablet 300 mg PO DAILY trazodone 50 mg tablet 50 mg PO HS PRN (Reason: Insomnia) Qty: 30 0RF Date of admission: 04/12/24 20:09 Primary Care Provider: Chapito,Tera Wilson Admitting Provider: Lance Millard V. Attending physician on admission: Kya Valle Condition: Serious
[2024-04-18 05:59] LABS: CA 19-9 686085 U/mL (<34)
== END 2024-04-16 13:43 | disposition home or self-care (01) ==
LOC: ANHED 19:02 → ANHIMU 21:55 → ANH3MED 04-15 14:18 → ANHIMU 04-17 07:23
PROVIDERS: Internal Medicine; Internal Medicine Hematology & Oncology; Admitting Provider Internal Medicine; Emergency Provider Emergency Medicine; PCP Internal Medicine; Visit Provider Hospitalist
DX: I26.99 Other pulmonary embolism without acute cor pulmonale (principal); I82.442 Acute embolism and thrombosis of left tibial vein; C25.9 Malignant neoplasm of pancreas, unspecified; C78.5 Secondary malignant neoplasm of large intestine and rectum; C79.72 Secondary malignant neoplasm of left adrenal gland; C79.02 Secondary malignant neoplasm of left kidney and renal pelvis; R65.10 Systemic inflammatory response syndrome (SIRS) of non-infectious origin without acute organ dysfunction; G89.3 Neoplasm related pain (acute) (chronic); K59.03 Drug induced constipation; T40.605A Adverse effect of unspecified narcotics, initial encounter; R63.4 Abnormal weight loss; Z68.23 Body mass index [BMI] 23.0-23.9, adult; I10 Essential (primary) hypertension; Z66 Do not resuscitate; Z87.891 Personal history of nicotine dependence; Z79.899 Other long term (current) drug therapy; Z98.890 Other specified postprocedural states
CPT/HCPCS: 36415; 71275; 74177; 80048; 80053; 81003; 83605; 83690; 84484; 85025; 85610; 85730; 86301; 87040; 93005; 93306; 93970; 96360; 96361; 96365; 96366; 96368; 96372; 96374; 96375; 96376; 97161; 97165; 99285; A9270; G0378; J0780; J1171; J1644; J1650; J2405; J7030; J8540; Q9957; Q9967

== ENCOUNTER 2024-04-17 18:51 | Emergency (ER) | payer OTHER, SELFPAY ==
--- NOTE | ~2024-04-17 | CT_ITS ---
EXAMINATION: CT abdomen pelvis w con DATE: 04/17/2024 21:05 INDICATION: Abdominal pain TECHNIQUE: Computed tomography (CT) of the abdomen and pelvis was performed with 100 mL Omnipaque-350 intravenous contrast. Automated exposure control and iterative reconstruction technique were employe d. The dose-length product was 683.61 mGy-cm. COMPARISON: CT dated 04/12/2024 FINDINGS: There are persistent pulmonary emboli basilar segmental pulmonary arteries of the bilateral lower lob es. Humerus <1.5 cm pulmonary nodules with random distribution throughout the visualized lower lungs consistent with metastatic disease. There is more patchy regions of consolidation at the posterior ba silar segment of the left lower lobe which could represent pneumonia or pulmonary infarct. No pleural effusion. Heart size is normal. Atherosclerotic coronary artery calcification is. No pericardial eff usion. 1.5 x 1.2 cm nodule in the right paracardial fat pad also consistent with metastatic disease. Numerous hypoenhancing masses throughout the liver measuring up to 6.3 cm and a 0 x 5.6 cm mass at th e tail the pancreas which extends to involve the left adrenal gland appears to invade the capsule of the adjacent upper pole the left kidney. Also appear to be extension to adjacent fundus of the stomac h and splenic flexure the colon but which demonstrate hyperenhancing wall thickening. The mass also i n vasogenic occludes the splenic artery with unchanged large central low-attenuation splenic infarct involving the majority the spleen. The mass also invades the left renal vein which is severely narrow ed. There is a central filling defect within a segment of the left renal artery supplying the anterio r upper pole but without evident renal infarct. Likely secondary varicocele at the left scrotum with collateral draining vessels extending to the left external iliac vein. Gallbladder and right adrenal gland are normal. 1 cm cyst at the upper pole the right kidney. Moderat e amount of stool scattered throughout the colon some which demonstrates increased attenuation sugges ting prior oral contrast material ingestion. The amount of stool proximal to the hepatic flexure is s ignificantly larger than in the distal colon with suggestion of a stricture with partial obstruction at the region of malignant infiltration of the hepatic flexure the colon. No dilated small bowel to s uggest obstruction. Normal appendix. Stacy catheter within the bladder. Small fat-containing left ing uinal hernia. Small amount of ascites scattered throughout the abdomen and pelvis. Stranding and mult iple soft tissue density nodules in the omentum in the left upper quadrant consistent with additional metastatic disease. There are also multiple enlarged retroperitoneal lymph nodes the gastrohepatic, periportal, left periaortic, crural and aortocaval regions consistent with metastatic disease. Mild l umbar dextroscoliosis with severe spondylosis. To suggest osseous metastatic disease. IMPRESSION: 1. A large mass at the tail the pancreas consistent with primary malignancy with invasion of the left adrenal gland, left kidney, the gastric fundus and splenic flexure the colon with partial colonic ob struction. 2. Widespread metastatic disease with numerous pulmonary nodules, multiple hepatic masses and lymphad enopathy in the lower chest and upper abdomen. 3. Persistent pulmonary emboli in the basilar segments of the bilateral lower lobes with small region of consolidation at the posterior basilar segment of the left lower lobe suspicious for pulmonary in farct with differential including pneumonia. 4. Nonocclusive thrombus of a branch of the left renal artery supplying anterior portion of the lower pole but without evident and renal infarct. 5. Persistent direct invasion of the splenic artery by the pancreatic mass with unchanged large splen ic infarct. 6. The patient and stenosis of the left re
[2024-04-17 19:13] VITALS: BP 97/61; PULSE 99; RESP 14; TEMP 36.6; O2SAT 100
--- NOTE | 2024-04-17 19:42 | ED.GENADULT ---
HPI - General Adult General Chief complaint: Urogenital-Male Stated complaint: unable to urinate Time Seen by Provider: 04/17/24 19:31 Related Data Home Medications Medication Instructions Recorded Confirmed allopurinol 300 mg tablet 300 mg PO DAILY 04/05/24 04/12/24 atorvastatin 40 mg tablet 40 mg PO DAILY 04/05/24 04/12/24 dexamethasone 2 mg tablet 2 mg PO DAILY 04/05/24 04/12/24 hydrocodone 10 mg-acetaminophen 1 tablet PO Q6H PRN Pain (Scale 04/05/24 04/12/24 325 mg tablet Score 4-6) Allergies Allergy/AdvReac Type Severity Reaction Status Date / Time No Known Allergies Allergy Unknown Verified 04/05/24 16:25 [facility] Past Medical History Medical History Pancreatic malignant neoplasm Surgical History Surgical History H/O Spinal surgery Family History Family History Father Cancer Breast cancer Mother Cancer Sibling Cancer Breast cancer Social History Social History Smoking packs per day: 1 Smoking cigarettes per day: 20.0 Years smoked: 20 Smoking pack-years: 20.00 Smoking status: Former smoker Tobacco type: cigarettes Smoking end date: 02/26/20 Alcohol intake: current Drinks per week: 1 Substance use: never Substance use type: does not use Do You Feel Safe in your Home?: Yes Lack of Transportation: No Lack of Food: Never True Current Housing: I Have Housing Concerned About Future Housing: No Difficulty Paying Gas/Electric Bills: No Difficulty Paying for Meds: No Currently Unemployed: No Education: Bachelor's Degree Difficulty w/ Childcare or Family Care: No Spiritual care concerns: No Course Vital Signs Vital signs: Vital Signs Temperature 97.9 F 04/17/24 19:13 Pulse Rate 99 04/17/24 19:13 Respiratory Rate 14 04/17/24 19:13 Blood Pressure 97/61 L 04/17/24 19:13 Pulse Oximetry 100 04/17/24 19:13 Oxygen Delivery Room Air 04/17/24 19:13 Temperature 97.9 F 04/17/24 19:13 Pulse Rate 82 04/17/24 21:00 Respiratory Rate 20 04/17/24 21:00 Blood Pressure 115/77 04/17/24 21:00 Pulse Oximetry 99 04/17/24 21:00 Oxygen Delivery Room Air 04/17/24 19:13 Medical Decision Making MDM Narrative Medical decision making narrative: The patient was evaluated by myself in the emergency department. History is obtained from patient who is an independent historian and physical exam was performed. External medical records were reviewed at this time. IV was established and pertinent tests were ordered. Patient was administered 4 mg IV morphine for pain and 4 mg IV Zofran for nausea. Bladder scan revealed over 800 cc of urine at this time a 3 way Stacy catheter was placed. RN did have a difficult time passing the Stacy catheter as patient had a very obstructed distal penile urethra. 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 Patient states that he feels significantly better after fairly insertion and bladder emptying. Laboratory results obtained revealing a leukocytosis of 23.1, hemoglobin of 10 and, total bili 1.4, AST 122, ALT 169, alkaline phosphatase 772 which are all around patient's baseline. Urinalysis revealed no evidence of urinary tract infection. Imaging studies obtained included CT abdomen pelvis with IV contrast which was independently interpreted by me revealin. A large mass at the tail the pancreas consistent with primary malignancy with invasion of the left adrenal gland, left kidney, the gastric fundus and splenic flexure the colon with partial colonic obstruction. 2. Widespread metastatic disease with numerous pulmonary nodules, multiple hepatic masses and lymphadenopathy in the lower chest and upper abdomen
[2024-04-17 20:08] LABS: Basophils Percent Auto 0.2 % (0.2-1.2); Eosinophils Absolute Auto 0.1 K/mm3 (0-0.3); Eosinophils Percent Auto 0.5 % (0-4.4); Hematocrit 30.5 % (42.0-52.0); Hemoglobin 10.1 g/dL (14.0-18.0); Immature Granulocyte Absolute 0.34 K/mm3 (0.00-0.031); Immature Granulocyte Percent A 1.5 % (0-0.5); Lymphocytes Percent Auto 7.4 % (18.3-44.2); Mean Corpuscular HGB Conc 33.1 g/dl (32-36); Mean Corpuscular Hemoglobin 30.4 pg (26-34); Mean Corpuscular Volume 91.9 fl (80-100); Mean Platelet Volume 10.6 fl (7.4-10.4); Monocytes Absolute Auto 2.8 K/mm3 (0.1-0.6); Monocytes Percent Auto 11.9 % (2.6-8.5); Neutrophils Absolute Auto 18.1 K/mm3 (1.3-6.7); Neutrophils Percent Auto 78.5 % (45.5-73.1); Platelet Count Result 376 k/mm3 (150-375); Red Blood Count 3.32 M/mm3 (4.6-6.20); Red Cell Distribution Width 14.1 % (11.5-14.5); White Blood Count 23.1 K/mm3 (4.5-10.0)
[2024-04-17] MEDS: LIDOCAINE HCL 2% GEL UROJET 10 ML PKG MUCOUS MEM (20:13)
[2024-04-17 20:19] LABS: Lactic Acid Reflex 1.8 mmol/L (0.7-2.0)
[2024-04-17 20:22] LABS: Alanine Aminotransferase 169 U/L (6-50); Alkaline Phosphatase 772 U/L (38-126); Anion Gap 9 mmol/L (4-12); Aspartate Amino Transferase 122 U/L (17-59); Bilirubin,Total 1.4 mg/dL (0.2-1.3); Blood Urea Nitrogen 32 mg/dL (9-20); Carbon Dioxide 20 mmol/L (22-30); Chloride 102 mmol/L (98-107); Estimated CRCL calculation 73 ml/min; Estimated Glomerular Filt Rate > 60; Glucose 106 mg/dL (65-110); Lipase 94 U/L (23-300); Potassium 4.2 mmol/L (3.4-5.0); Sodium 131 mmol/L (137-145)
[2024-04-17 20:54] LABS: Add Urine Microscopic? NO; Appearance Urine Clear (Clear); Bilirubin Urine Negative (Negative); Blood Urine Negative (Negative); Color Urine Yellow (Yellow); Glucose Urine UA Negative (Negative); Ketones Urine Negative (Negative); Leukocyte Esterase Ur Negative LEU/UL (Negative); Nitrate Urine Negative (Negative); Protein Urine Negative (Negative); Specific Grav Ur 1.014 (1.001-1.035); pH Urine 5.5 (5.0-9.0)
[2024-04-17 21:00] VITALS: BP 115/77; PULSE 82; RESP 20; O2SAT 99
[2024-04-17] MEDS: SODIUM CHLORIDE 0.9% IV 1,000 ML 999 ML IV CONT (21:14)
[2024-04-17] MEDS: ONDANSETRON INJ 4 MG/2 ML VIAL IV PUSH (21:14)
[2024-04-17] MEDS: MORPHINE SULFATE (*CRX) 2 MG/ML INJ IV PUSH (21:14)
[2024-04-17 23:04] VITALS: BP 108/76; PULSE 84; RESP 16; O2SAT 99
== END 2024-04-17 23:40 | disposition home or self-care (01) ==
PROVIDERS: Emergency Provider Emergency Medicine; PCP Internal Medicine
DX: C25.2 Malignant neoplasm of tail of pancreas (principal); C79.9 Secondary malignant neoplasm of unspecified site; R33.9 Retention of urine, unspecified; Z87.891 Personal history of nicotine dependence
CPT/HCPCS: 36415; 51702; 74177; 80053; 81003; 83605; 83690; 85025; 99284; J2270; J2405; J7030; Q9967

== ENCOUNTER 2024-04-21 10:12 | Emergency (ER) | payer OTHER, SELFPAY ==
[2024-04-21] VITALS (7 sets, daily range): BP systolic 102–120; BP diastolic 73–83; PULSE 70–95; RESP 14–16; TEMP 36.6–36.7; O2SAT 96–100
[2024-04-21] MEDS: KETOROLAC 30 MG/ML VIAL (*BKC) IV PUSH (11:07)
[2024-04-21] MEDS: diazePAM INJ (*CRX) 10 MG/2 ML SYRINGE 5 MG IV PUSH (11:08)
[2024-04-21] MEDS: SODIUM CHLORIDE 0.9% IV 1,000 ML 999 ML IV CONT (11:08)
[2024-04-21] MEDS: MORPHINE SULFATE (*CRX) 4 MG/ML INJ IV PUSH (12:19)
--- NOTE | 2024-04-21 12:45 | PC.NURSE ---
pt arrived with indwelling unger catheter. it was removed by this RN per provider VORB due to patient request. it was placed due to urinary retention. provided pt with urinal to collect any urine production.
--- NOTE | 2024-04-21 14:11 | ED_ITS ---
HPI - General Adult General Chief complaint: Unspecified Stated complaint: bleeding hemorrhoids Time Seen by Provider: 04/21/24 10:19 History of Present Illness HPI narrative: Patient is a 63-year-old male who presents ER with rectal pain. Patient has been having trouble passing a bowel movement. His hospice nurse tried to disimpact him today base started bleeding from hemorrhoid. He is on a blood thinner. Not currently bleeding at this time. Has Unger catheter for urinary retention that was placed couple days ago. Patient has metastatic pancreatic cancer. He has tried stool softeners and an enema at home without improvement. He has pain at the anus. Related Data Home Medications Medication Instructions Recorded Confirmed allopurinol 300 mg tablet 300 mg PO DAILY 04/05/24 04/12/24 atorvastatin 40 mg tablet 40 mg PO DAILY 04/05/24 04/12/24 dexamethasone 2 mg tablet 2 mg PO DAILY 04/05/24 04/12/24 hydrocodone 10 mg-acetaminophen 1 tablet PO Q6H PRN Pain (Scale 04/05/24 04/12/24 325 mg tablet Score 4-6) Allergies Allergy/AdvReac Type Severity Reaction Status Date / Time No Known Allergies Allergy Unknown Verified 04/21/24 10:25 Review of Systems Review of Systems: All systems reviewed & are unremarkable except as noted in HPI and below Constitutional: Constitutional: Reports no additional constitutional complaints Cardiovascular: Cardiovascular: Reports no additional cardiovascular complaints Respiratory: Respiratory: Reports no additional respiratory complaints Gastrointestinal: Gastrointestinal: Reports no additional gastrointestinal complaints [facility] Past Medical History Medical History Pancreatic malignant neoplasm Surgical History Surgical History H/O Spinal surgery Family History Family History Father Cancer Breast cancer Mother Cancer Sibling Cancer Breast cancer Social History Social History Smoking packs per day: 1 Smoking cigarettes per day: 20.0 Years smoked: 20 Smoking pack-years: 20.00 Smoking status: Former smoker Tobacco type: cigarettes Smoking end date: 02/26/20 Alcohol intake: current Drinks per week: 1 Substance use: never Substance use type: does not use Do You Feel Safe in your Home?: Yes Lack of Transportation: No Lack of Food: Never True Current Housing: I Have Housing Concerned About Future Housing: No Difficulty Paying Gas/Electric Bills: No Difficulty Paying for Meds: No Currently Unemployed: No Education: Bachelor's Degree Difficulty w/ Childcare or Family Care: No Spiritual care concerns: No Exam Narrative: GENERAL: Well-appearing, well-nourished, and in no acute distress. HEAD: Normocephalic, atraumatic. ENT: Mucous membranes moist. CHEST: Clear to auscultation. No respiratory distress. HEART: Regular rate and rhythm. Normal peripheral pulses. ABDOMEN: Soft, nontender, nondistended. digital rectal exam with tenderness at the sphincter, there is a piece of from stool within the rectal vault but not particularly impacted. Non bleeding Jose hemorrhoid at the 12 o'clock position in left lateral decubitus position. EXTREMITIES: Normal range of motion. No edema. SKIN: Warm, dry, no rash. NEURO: Alert and oriented x3. PSYCH: Normal mood and affect. Course Course Emergency Course: Patient resting comfortably. He is been able have bowel movements without issue. He requested that is unger ve removed. He has not been able to for urinate since having it removed, bladder scan shows 87 mL of urine. He does not wish for us to place another Unger and he will go home and try to urinate there. D/c home. Vital Signs Vital signs: Vital Signs Temperature 97.9 F 04/21/24 10:20 Pulse Rate 95 04/21/24 10:20 Respiratory Rate 14 04/21/24 10:20 Blood Pressure 114/83 04/21/24 10:20 Pulse Oximetry 98 04/21/24 10:20 Oxygen Delivery Room Air 04/21/24 10:20 Temperature 97.9 F 04/21/24 10:20 Pulse Rate 70 04/21/24 12:30 Respiratory Rate 14 04/21/24 10:20 Blood Pressure 102/78 04/21/24 12:30 Pulse Oximetry 98 04/21/24 12:30 Oxygen Delivery Room Air 04/21/24 10:20 Medical Decision Making Vital Signs Vital Signs: Vital Signs Temperature 97.9 F 04/21/24 10:20 Pulse Rate 95 04/21/24 10:20 Respiratory Rate 14 04/21/24 10:20 Blood Pressure 114/83 04/21/24 10:20 Pulse Oximetry 98 04/21/24 10:20 Oxygen Delivery Room Air 04/21/24 10:20 Temperature 97.9 F 04/21/24 10:20 Pulse Rate 70 04/21/24 12:30 Respiratory Rate 14 04/21/24 10:20 Blood Pressure 102/78 04/21/24 12:30 Pulse Oximetry 98 04/21/24 12:30 Oxygen Delivery Room Air 04/21/24 10:20 Discharge Plan Discharge Clinical Impression: Hemorrhoid, Constipation Patient Disposition: Home, Self-Care Condition: Stable Instructions: Constipation (ED), Hemorrhoids (ED) Additional Instructions: Return the ER if he cannot urinate, you are unable have a bowel movement, have additional concerns. Continue take stool softeners seizure not have constipation issues again. Return the ER if you have fever 100.4? F, you can not keep down food water, or you have additional concerns. Prescriptions: New hydrocortisone [Anusol-HC] 2.5 % cream with perineal applicator 1 applic RECTAL DAILY PRN (Reason: hemorrhoids) Qty: 30 0RF Tucks (witch alfie) 50 % pads, medicated 1 pad topical BID Qty: 40 0RF No Action atorvastatin 40 mg tablet 40 mg PO DAILY Hold Instructions: until seen by [facility] care provider hydrocodone-acetaminophen 10-325 mg tablet 1 tablet PO Q6H PRN (Reason: Pain (Scale Score 4-6)) dexamethasone 2 mg tablet 2 mg PO DAILY allopurinol 300 mg tablet 300 mg PO DAILY enoxaparin [Lovenox] 80 mg/0.8 mL Syringe 80 mg subcut Q12HR Qty: 48 0RF trazodone 50 mg tablet 50 mg PO HS PRN (Reason: Insomnia) Qty: 30 0RF oxycodone 5 mg tablet 5 mg PO Q6H PRN (Reason: pain) Qty: 20 0RF sennosides-docusate sodium [Senokot-S] 8.6-50 mg Tablet 1 tab-cap PO BID PRN (Reason: Constipation) Qty: 60 0RF Follow-up/Referrals: Jamil,Tera Wilson MD [Primary Care Provider] - 1 Week
== END 2024-04-21 16:44 | disposition home or self-care (01) ==
PROVIDERS: Emergency Provider Emergency Medicine; PCP Internal Medicine
DX: K64.9 Unspecified hemorrhoids (principal); K59.00 Constipation, unspecified; C25.9 Malignant neoplasm of pancreas, unspecified; Z87.891 Personal history of nicotine dependence
CPT/HCPCS: 96361; 96374; 96375; 99284; J1885; J2270; J3360; J7030